=== PATIENT | female | born 1945 | race Caucasian/White ===

== ENCOUNTER → 2016-09-10 | Outpatient (CLI) | payer OTHER | LOC: EEVIPCON 13:40 → FIMAGING 13:40 | PROVIDERS: ATTEND Internal Medicine | DX: Z12.31 Encounter for screening mammogram for malignant neoplasm of breast (principal); Z80.3 Family history of malignant neoplasm of breast | CPT/HCPCS: G0202 ==

== ENCOUNTER → 2017-06-21 | Outpatient (CLI) | payer OTHER | LOC: FIMAGING 10:27 | PROVIDERS: ATTEND Internal Medicine | DX: Z98.1 Arthrodesis status (principal); M41.26 Other idiopathic scoliosis, lumbar region; M51.86 Other intervertebral disc disorders, lumbar region; M51.36 Other intervertebral disc degeneration, lumbar region; M48.02 Spinal stenosis, cervical region; M51.84 Other intervertebral disc disorders, thoracic region ==

== ENCOUNTER → 2017-11-03 | Outpatient (CLI) | payer OTHER | LOC: FIMAGING 15:19 | PROVIDERS: ATTEND Internal Medicine | DX: Z12.31 Encounter for screening mammogram for malignant neoplasm of breast (principal); Z80.3 Family history of malignant neoplasm of breast ==

== ENCOUNTER 2017-11-17 14:04 | Emergency (ER) | payer OTHER ==
[2017-11-17] MEDS ORDERED: LIDOCAINE 4%/MENTHOL 1% PATCH TD ONE (14:33)
--- NOTE | 2017-11-17 14:37 | EDPHY ---
H & P Stated Complaint: lower back pain Time Seen by Provider: 11/17/17 14:20 HPI/ROS: CHIEF COMPLAINT: Low back pain HISTORY OF PRESENT ILLNESS: 72-year-old female with prior L4-5 fusion presents with low back pain. 11 days ago she swung her grandson around while holding him. Onset of low back pain the next morning when she awoke. The back pain is moderate to severe and increases with any movement. The pain radiates to the buttock, but not down the leg. No numbness or weakness. Taking Naprosyn without much relief. Has an appointment with Dr. Kendrick Willis in 1 week for evaluation. REVIEW OF SYSTEMS: complete 10 point ROS reviewed and is negative except for the noted elements in the HPI - Personal History Current Tetanus/Diphtheria Vaccine: Yes Current Tetanus Diphtheria and Acellular Pertussis (TDAP): Yes - Medical/Surgical History Hx Asthma: No Hx Chronic Respiratory Disease: No Hx Diabetes: No Hx Cardiac Disease: No Hx Renal Disease: No Hx Cirrhosis: No Hx Alcoholism: No Hx HIV/AIDS: No Hx Splenectomy or Spleen Trauma: No Other PMH: back surgeries - Social History Smoking Status: Never smoked Additional Social History: - Physical Exam Exam: General Appearance: Alert, pleasant Eyes: Pupils equal and round, no conjunctival pallor ENT, Mouth: Mucous membranes moist Neck: Normal inspection Gastrointestinal: Abdomen is soft and nontender Back: Midline scar, no midline or paraspinous tenderness Neurological: A&O, motor 5/5 including dorsiflexion of the ankle and 1st toe, patellar DTRs 2+, normal gait Skin: Warm and dry Extremities: Normal inspection Psychiatric: Mood and affect normal Constitutional: Initial Vital Signs Temperature (C) 36.7 C 11/17/17 14:11 Heart Rate 75 11/17/17 14:11 Respiratory Rate 20 11/17/17 14:11 Blood Pressure 195/100 H 11/17/17 14:11 O2 Sat (%) 97 11/17/17 14:11 O2 Delivery Mode Room Air Allergies/Adverse Reactions: CATS Allergy (Intermediate, Uncoded 11/17/17 14:16) Itching STRAWBERRIES Allergy (Mild, Uncoded 11/17/17 14:16) Itching Home Medications: Medication Instructions Recorded Katherine 11/17/17 Oxycodone HCl 5 mg PO Q6 PRN #15 capsule 11/17/17 methylPREDNISolone [Medrol Dose 1 each PO AD #1 ea 11/17/17 Allen] Medical Decision Making ED Course/Re-evaluation: This patient presents with low back pain. Neurologic exam is normal and neuro imaging is not indicated. A lidocaine patch was placed. Prescriptions for Medrol Dosepak and oxycodone given. Has a follow-up appointment with neurosurgery next week. Warning signs discussed. Differential Diagnosis: Differential diagnosis for back pain includes muscular pain, herniated disc, epidural abscess, discitis, spine fracture, intra-abdominal causes and urinary tract infection. - Data Points Medications Given: Discontinued Medications Miscellaneous Medication (Icy Hot Lidocaine/Menthol 4%/1% Patch) 1 patch TD EDNOW ONE Stop: 11/17/17 14:34 Last Admin: 11/17/17 14:41 Dose: 1 patch Departure - Departure Disposition: Home, Routine, Self-Care Clinical Impression: Low back pain Qualifiers: Chronicity: acute Back pain laterality: left Sciatica presence: without sciatica Qualified Code(s): M54.5 - Low back pain Condition: Good Instructions: Low Back Strain (ED) Additional Instructions: Do not take ibuprofen or Naprosyn while you are on the Medrol Dosepak. Referrals: Stephany Tuttle MD [Primary Care Provider] - As per Instructions Georgie Willis MD [Medical Doctor] - As per Instructions Prescriptions: methylPREDNISolone [Medrol Dose Allen] 1 each PO AD #1 ea Oxycodone HCl 5 mg PO Q6 PRN #15 capsule PRN Reason: back pain
[2017-11-17 14:47] VITALS: BP 155/95
[2017-11-17] MEDS ORDERED: PATCH REMOVAL 1 EA PATCH TD SCH (21:00)
== END 2017-11-17 14:48 | disposition home or self-care (01) ==
DX: M54.5 Low back pain (principal); Z98.1 Arthrodesis status

== ENCOUNTER 2017-11-23 12:30 | Emergency (ER) | payer OTHER ==
--- NOTE | 2017-11-23 13:03 | EDPHY ---
H & P Time Seen by Provider: 11/23/17 13:03 HPI/ROS: CHIEF COMPLAINT: Right-sided burning abdominal pain HISTORY OF PRESENT ILLNESS: Patient was in our emergency department on November 17 for back pain, she does have previous back surgery and a long history of lower back pain. It is still there and she is on opioid pain medication is feeling somewhat constipated but did have bowel movement today. Or last 3 days she has had every time the opioids wear off a burning in her right lower abdomen. She feels like she is distended and maybe has mass down there. Not associated with vomiting or diarrhea or any urinary symptoms or fever or chills. Is not better worse with position, and in fact she wants to stand up and continually change position because standing in 1 place too long makes it worse. REVIEW OF SYSTEMS: Eye: no change in vision ENT: no sore throat Cardiac: no chest pain or syncope Pulmonary: no cough or SOB Abdomen: HPI Musculoskeletal: HPI Skin: no rash, specifically no vesicles or zoster Neuro: no headache Constitutional: no fever : no urinary symptoms A comprehensive 10 point review of systems is otherwise negative aside from elements mentioned in the history of present illness. PAST MEDICAL HISTORY: Includes prior back surgeries Social history: Nonsmoker General Appearance: Alert and conversant, cooperative. Eyes: No scleral icterus. ENT, Mouth: Normal mucous membranes. Respiratory: Normal respiratory effort, breath sounds equal, lungs are clear to auscultation. Cardiovascular: Regular rate and rhythm. Gastrointestinal: Mild right lower quadrant tenderness but no rebound or guarding. No hernia palpated. No pulsatile mass. Neurological: Alert, face symmetric, normal motor and sensory in extremities. Ambulatory, normal motor and sensory in both feet, no clonus, patellar reflexes 2+ and symmetric. Skin: Warm and dry, no rashes. No evidence of zoster. Musculoskeletal: No peripheral edema. Psychiatric: Not agitated. Emergency Department course/MDM: CT abdomen and pelvis discussed and consented. 1424: CT abdomen pelvis shows normal appendix, diverticulosis without diverticulitis, some constipation. No other reason for abdominal pain. 1440: Results discussed the patient, she has follow-up with her spine surgeon tomorrow. Differential also includes upper lumbar radiculopathy with opioid induced constipation, which I think is more likely at this time. Smoking Status: Never smoked Constitutional: Initial Vital Signs Temperature (C) 36.6 C 11/23/17 12:44 Heart Rate 82 11/23/17 12:44 Respiratory Rate 18 11/23/17 12:44 Blood Pressure 165/91 H 11/23/17 12:44 O2 Sat (%) 98 11/23/17 12:44 O2 Delivery Mode Room Air Allergies/Adverse Reactions: CATS Allergy (Intermediate, Uncoded 11/23/17 12:48) Itching STRAWBERRIES Allergy (Mild, Uncoded 11/23/17 12:48) Itching Home Medications: Medication Instructions Recorded Aleve 11/17/17 Oxycodone HCl 5 mg PO Q6 PRN #15 capsule 11/17/17 methylPREDNISolone [Medrol Dose 1 each PO AD #1 ea 11/17/17 Allen] Medical Decision Making - Diagnostics Imaging Results: Imaging Impressions Abdomen CT 11/23/17 13:36 Impression: 1. Normal appendix. 2. Sigmoid diverticulosis. No acute diverticulitis. 3. Constipation. 4. No localized intra-abdominal inflammatory process. 5. Well-seated posterior fusion construct at L4-L5. No evidence of loosening. Findings discussed with Emergency Department physician, Abraham Damon on 11/23/2017 , 14:32. - Data Points Laboratory Results: Laboratory Results 11/23/17 13:30 11/23/17 13:30 11/23/17 11/23/17 11/23/17 13:35 13:30 13:30 WBC 4.05 10^3/uL 10^3/uL (3.80-9.50) RBC 4.63 10^6/uL 10^6/uL (4.18-5.33) Hgb 15.5 g/dL g/dL (12.6-16.3) POC Hgb 16.0 gm/dL gm/dL (12.6-16.3) Hct 43.7 % % (38.0-47.0) POC Hct 47 % % (38-47) MCV 94.4 fL fL (81.5-99.8) MCH 33.5 pg pg (27.9-34.1) MCHC 35.5 g/dL g/dL (32.4-36.7) RDW 11.7 % % (11.5-15.2) Plt Count 219 10^3/uL 10^3/uL (150-400) MPV 8.9 fL fL (8.7-11.7) Neut % (Auto) 71.6 % % (39.3-74.2) Lymph % (Auto) 14.3 % L % (15.0-45.0) [place] % (Auto) 11.9 % % (4.5-13.0) Eos % (Auto) 1.5 % % (0.6-7.6) Baso % (Auto) 0.5 % % (0.3-1.7) Nucleat RBC Rel Count 0.0 % % (0.0-0.2) Absolute Neuts (auto) 2.90 10^3/uL 10^3/uL (1.70-6.50) Absolute Lymphs (auto) 0.58 10^3/uL L 10^3/uL (1.00-3.00) Absolute Monos (auto) 0.48 10^3/uL 10^3/uL (0.30-0.80) Absolute Eos (auto) 0.06 10^3/uL 10^3/uL (0.03-0.40) Absolute Basos (auto) 0.02 10^3/uL 10^3/uL (0.02-0.10) Absolute Nucleated RBC 0.00 10^3/uL 10^3/uL (0-0.01) Immature Gran % 0.2 % % (0.0-1.1) Immature Gran # 0.01 10^3/uL 10^3/uL (0.00-0.10) RBC/WBC/PLT Morphology TNP Platelet Estimate ADEQUATE (ADEQ) POC Sodium 139 mEq/L mEq/L (135-145) Sodium 138 mEq/L mEq/L (135-145) POC Potassium 3.9 mEq/L mEq/L (3.3-5.0) Potassium 4.2 mEq/L mEq/L (3.3-5.0) POC Chloride 100 mEq/L mEq/L (97-110) Chloride 100 mEq/L mEq/L (97-110) Carbon Dioxide 27 mEq/l mEq/l (22-31) Anion Gap 11 mEq/L mEq/L (8-16) POC BUN 14 mg/dL mg/dL (7-23) BUN 15 mg/dL mg/dL (7-23) Creatinine 0.6 mg/dL mg/dL (0.6-1.0) POC Creatinine 0.6 mg/dL mg/dL (0.6-1.0) Estimated GFR > 60 Glucose 101 mg/dL H mg/dL (70-100) POC Glucose 103 mg/dL H mg/dL (70-100) Calcium 10.1 mg/dL mg/dL (8.5-10.4) Urine Color Urine Appearance Urine pH Ur Specific [place] Urine Protein Urine Ketones Urine Blood Urine Nitrate Urine Bilirubin Urine Urobilinogen Ur Leukocyte Esterase Urine Glucose 11/23/17 12:40 WBC RBC Hgb POC Hgb Hct POC Hct MCV MCH MCHC RDW Plt Count MPV Neut % (Auto) Lymph % (Auto) [place] % (Auto) Eos % (Auto) Baso % (Auto) Nucleat RBC Rel Count Absolute Neuts (auto) Absolute Lymphs (auto) Absolute Monos (auto) Absolute Eos (auto) Absolute Basos (auto) Absolute Nucleated RBC Immature Gran % Immature Gran # RBC/WBC/PLT Morphology Platelet Estimate POC Sodium Sodium POC Potassium Potassium POC Chloride Chloride Carbon Dioxide Anion Gap POC BUN BUN Creatinine POC Creatinine Estimated GFR Glucose POC Glucose Calcium Urine Color PALE YELLOW Urine Appearance CLEAR Urine pH 7.0 (5.0-7.5) Ur Specific [place] 1.005 (1.002-1.030) Urine Protein NEGATIVE (NEGATIVE) Urine Ketones NEGATIVE (NEGATIVE) Urine Blood NEGATIVE (NEGATIVE) Urine Nitrate NEGATIVE (NEGATIVE) Urine Bilirubin NEGATIVE (NEGATIVE) Urine Urobilinogen NEGATIVE EU EU (0.2-1.0) Ur Leukocyte Esterase NEGATIVE (NEGATIVE) Urine Glucose NEGATIVE (NEGATIVE) Point of Care Test Results: Chemistry 11/23/17 13:35 POC Sodium 139 mEq/L mEq/L (135-145) POC Potassium 3.9 mEq/L mEq/L (3.3-5.0) POC Chloride 100 mEq/L mEq/L (97-110) POC BUN 14 mg/dL mg/dL (7-23) POC Creatinine 0.6 mg/dL mg/dL (0.6-1.0) POC Glucose 103 mg/dL H mg/dL (70-100) ISTAT H&H 11/23/17 13:35 POC Hgb 16.0 gm/dL gm/dL (12.6-16.3) POC Hct 47 % % (38-47) Departure - Departure Disposition: Home, Routine, Self-Care Clinical Impression: Lumbar radiculopathy, acute Abdominal pain Qualifiers: Abdominal location: right lower quadrant Qualified Code(s): R10.31 - Right lower quadrant pain Condition: Good Instructions: Acute Abdominal Pain (ED), Lumbar Radiculopathy (ED) Referrals: Stephany Tuttle MD [Primary Care Provider] - As per Instructions Georgie Willis MD [Medical Doctor] - As per Instructions (Please follow-up in the office this week.)
[2017-11-23 13:44] LABS: PLATELET COUNT 219 10^3/uL (150-400)
[2017-11-23] MEDS ORDERED: IOPAMIDOL (ISOVUE-300) 100 ML BTL ONE (13:52)
[2017-11-23 14:25] VITALS: BP 177/97
== END 2017-11-23 15:09 | disposition home or self-care (01) ==
DX: R10.31 Right lower quadrant pain (principal); M54.16 Radiculopathy, lumbar region
CPT/HCPCS: 74177; 99285; Q9967; 82435-PO; 82565-PO; 82947-PO; 84132-PO; 84295-PO; 84520-PO; 85014-PO

== ENCOUNTER → 2017-11-29 | Outpatient (CLI) | payer OTHER | LOC: FIMAGING 14:38 | PROVIDERS: ATTEND Neurological Surgery | DX: M79.89 Other specified soft tissue disorders (principal); M48.05 Spinal stenosis, thoracolumbar region; M51.35 Other intervertebral disc degeneration, thoracolumbar region; D18.09 Hemangioma of other sites ==

== ENCOUNTER 2017-12-14 06:51 | Inpatient (IN) | payer OTHER ==
[2017-12-14] MEDS ORDERED: GABAPENTIN 300 MG CAP PO ONE (07:20)
[2017-12-14] MEDS ORDERED: ACETAMINOPHEN 500 MG TAB PO ONE (07:20)
[2017-12-14] MEDS ORDERED: ceFAZolin 2 GM/DEXTROSE 100 ML IV ONE (07:20)
[2017-12-14] MEDS ORDERED: LR 1,000 ML IV ONE (07:21)
[2017-12-14] MEDS ORDERED: LIDOCAINE 1% 2 ML INJ ID PRN (07:21)
--- NOTE | 2017-12-14 07:53 | PDHPUP ---
History & Physical Update H&P update statement: This history and physical update is based on an assessment of the patient which was completed after admission or registration (within 24 hours), but prior to the surgery/procedure. H&P update: H&P reviewed & patient examined, no change in patient's condition since H&P completed
[2017-12-14] MEDS ORDERED: CHLORHEXIDINE GLUC HIBICLENS 118 ML BTL TP ONE (08:33)
[2017-12-14] MEDS ORDERED: DEPO METHYLPREDNISOLONE 40 MG/ML SDV ONE (08:34)
[2017-12-14] MEDS ORDERED: THROMBIN (BOVINE) 5,000 UNIT VIAL TP ONE (08:34)
[2017-12-14] MEDS ORDERED: BUPIVACAINE 0.25% 30 ML SDV ONE (08:34)
[2017-12-14] MEDS ORDERED: EPINEPHrine 1 MG/ML INJ ONE (08:34)
[2017-12-14] MEDS ORDERED: BACITRACIN 50,000 UNITS/10 ML SYR IRR ONE (08:35)
[2017-12-14] MEDS ORDERED: fentaNYL 250 MCG/5 ML INJ ONE (09:05)
[2017-12-14] MEDS ORDERED: MIDAZOLAM 2 MG/2 ML VIAL ONE (09:05)
[2017-12-14] MEDS ORDERED: PROPOFOL/EMULSION 500 MG/50 ML BOTTLE IV ONE ×2 (09:06→10:18)
[2017-12-14] MEDS ORDERED: ROCURONIUM 50 MG/5 ML VIAL ONE (09:07)
[2017-12-14] MEDS ORDERED: DEXAMETHASONE 4 MG/ML VIAL ONE ×2 (09:07)
--- NOTE | 2017-12-14 09:07 | PDANEPAE ---
ANE Past Medical History - Cardiovascular History Hx Hypertension: No Hx Arrhythmias: No Hx Chest Pain: No Hx Coronary Artery / Peripheral Vascular Disease: No Hx CHF / Valvular Disease: No Hx Palpitations: No - Pulmonary History Hx COPD: No Hx Asthma/Reactive Airway Disease: No Hx Recent Upper Respiratory Infection: No Hx Oxygen in Use at Home: No Hx Sleep Apnea: No Sleep Apnea Screening Result - Last Documented: Negative - Neurologic History Hx Cerebrovascular Accident: No Hx Seizures: No Hx Dementia: No Neurologic History Comment: hx of five previous back surgeries. 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 spinal decompressions and fusions x5. hysterectomy. big toe joint replacement. varicose vein stripping. dental procedures ANE Review of Systems Review of Systems: - Exercise capacity METS (RN): 4 METS ANE Patient History - Allergies Allergies/Adverse Reactions: CATS Allergy (Uncoded 12/07/17 12:32) Itching STRAWBERRIES Allergy (Uncoded 12/07/17 12:32) Itching - Home Medications Home Medications: Ascorbic Acid [Vitamin C 500 mg (*)] 500 mg PO SUTUTHSA 12/07/17 [Last Taken ] Calcium Carbonate [Oyster Shell Calcium 500 mg (*)] 500 mg PO SUTUTHSA 12/07/17 [Last Taken 12/10/17] Carboxymethylcellulose 1% [Refresh Celluvisc (*)] 1 drop EACHEYE DAILY PRN 12/07 [Last Taken 12/13/17] Cholecalciferol Vit D3 [Vitamin D3 (*)] 1,000 units PO MWF 12/07/17 [Last Taken 12/10/17] Cholecalciferol Vit D3 [Vitamin D3 2000 units tab (OTC)] 2,000 units PO SUTUTHSA 12/07/17 [Last Taken 12/10/17] Docusate Sodium [Colace 100 MG (*)] 200 mg PO TID 12/07/17 [Last Taken 12/14/17 05:45] Gabapentin [Neurontin 100 MG (*)] 200 mg PO DAILY@1830 12/07/17 [Last Taken 23:00] Herbals/Supplements -Info Only 1 ea PO DAILY 12/07/17 [Last Taken 12/04/17] Melatonin [Melatonin 3 MG (*)] 3 mg PO HS 12/07/17 [Last Taken 12/10/17] Multivitamins [Multivitamin (*)] 1 each PO MWF 12/07/17 [Last Taken 12/04/17] Sennosides [Senna Lax] 1 - 2 each PO HS 12/07/17 [Last Taken 12/13/17 09:00] Vitamin B Complex [Vitamin B Complex (OTC)] 1 each PO SUTUTHSA 12/07/17 [Last Taken 12/04/17] oxyCODONE IR [Oxycodone Ir (*)] 5 mg PO Q4HRS 12/07/17 [Last Taken 12/14/17 05: 45] ACETAMINOPHEN 12/14/17 [Last Taken 12/14/17 05:45] - NPO status NPO Since - Liquids (Date): 12/14/17 NPO Since - Liquids (Time): 08:00 NPO Since - Solids (Date): 12/13/17 NPO Since - Solids (Time): 00:59 - Smoking Hx Smoking Status: Never smoked - Family Anes Hx Family Hx Anesthesia Complications: none ANE Labs/Vital Signs - Vital Signs Blood Pressure: 143/86 Heart Rate: 69 Respiratory Rate: 14 O2 Sat (%): 95 Height: 149.86 cm Weight: 47.627 kg ANE Physical Exam - Airway Neck exam: FROM, decreased ROM Mallampati Score: Class 2 - Pulmonary Pulmonary: no respiratory distress - Cardiovascular Cardiovascular: regular rate and rhythym - ASA Status ASA Status: II ANE Anesthesia Plan Anesthesia Plan: general endotracheal anesthesia
[2017-12-14] MEDS ORDERED: ONDANSETRON DISINTEGRATING 4 MG TAB PO PRN (10:09)
[2017-12-14] MEDS ORDERED: BISACODYL 10 MG SUPP PR PRN (10:09)
[2017-12-14] MEDS ORDERED: LACTULOSE 20 GM/30 ML UDCUP PO PRN (10:09)
[2017-12-14] MEDS ORDERED: MAGNESIUM HYDROXIDE 30 ML UDCUP PO PRN (10:09)
[2017-12-14] MEDS ORDERED: ONDANSETRON 4 MG/2 ML VIAL IVP PRN ×2 (10:09→11:40)
[2017-12-14] MEDS ORDERED: POLYETHYLENE GLYCOL 3350 17 GM PKT PO PRN (10:09)
[2017-12-14] MEDS ORDERED: diphenhydrAMINE 25 MG CAP PO PRN (10:09)
[2017-12-14] MEDS ORDERED: CARBOXYMETHYLCELLULOSE 1% 0.4 ML DROPERETTE EACHEYE PRN (10:12)
[2017-12-14] MEDS ORDERED: NS 1,000 ML IV SCH (10:15)
[2017-12-14] MEDS ORDERED: GLYCOPYRROLATE 0.2 MG/1 ML VIAL ONE ×2 (11:16)
[2017-12-14] MEDS ORDERED: NEOSTIGMINE METHYLSULFATE 5 MG/5 ML SYR ONE (11:16)
[2017-12-14] MEDS ORDERED: ALBUTEROL 3 ML DEYVIAL IH PRN (11:40)
[2017-12-14] MEDS ORDERED: HYDROCODONE/APAP 5/325 TAB PO PRN (11:40)
[2017-12-14] MEDS ORDERED: oxyCODONE IR 5 MG TAB PO PRN (11:40)
[2017-12-14] MEDS ORDERED: NALOXONE HCL 0.4 MG/ML INJ IVP PRN (11:40)
--- NOTE | 2017-12-14 11:41 | POSTOPPROG ---
Post Op Note Date of Operation: 12/14/17 Surgeon: Georgie Willis Reservations Specialist: Deja Streeter NP Anesthesiologist: Dr Baltazar Anesthesia: GET(General Endotracheal) Pre-op Diagnosis: T12 disc herniation/stenosis Procedure: T12 laminectomy for disc herniation Inf/Abcess present in the surg proc area at time of surgery?: No Depth: Deep Incisional (Fascial) EBL: Minimal Total fluids administered: see anesthesia Complications: none Date of Surgery: 12/14/17 Post Op Day: 0 Assessment/Plan: 72 yr old F s/p T12 laminectomy for disc herniation Plan: -Admit for Obs Med Surg. Patient may go home later today if doing well. -PT/OT -Pain management -Please call neurosurgery with questions/concerns Subjective: Waking up in PACU Objective: Waking up in PACU MARTELL x4 5/5 BUE, BLE Sensation intact to light touch BLE Dressing CDI Appropriate Neuro Check Frequency Ordered: Yes
--- NOTE | 2017-12-14 11:42 | POSTANESTH ---
Post Anesthetic Evaluation Cardiovascular Status: Similar to Pre-Op Cond Respiratory Status: Similar to Pre-op Cond. Level of Consciousness/Mental Status: Mildly Sleepy, Arousable Pain Control: Adequate, Prn Tx Ordered Nausea/Vomiting Control: Adequate, Prn Tx Ordered Complications Possibly Related to Anesthesia: None Noted
[2017-12-14] MEDS ORDERED: fentaNYL 100 MCG/2 ML INJ ONE ×2 (11:50→12:08)
[2017-12-14] MEDS: fentaNYL 100 MCG/2 ML INJ IVP PRN ×2 (11:51→11:59)
[2017-12-14] MEDS ORDERED: DIAZEPAM 5 MG/ML 1 ML SYR ONE (12:08)
[2017-12-14] MEDS ORDERED: DIAZEPAM 5 MG/ML 1 ML SYR IVP ONE (12:45)
[2017-12-14] MEDS: ACETAMINOPHEN 500 MG TAB PO SCH ×2 (14:02→21:08)
[2017-12-14] MEDS: oxyCODONE IR 5 MG TAB PO PRN ×3 (14:25→22:56)
--- NOTE | 2017-12-14 16:26 | GOP ---
DATE OF OPERATION: 12/14/2017 SURGEON: Anjum Willis MD NEUROSURGEON: Anjum Willis MD PULMONARY DISEASE SPECIALIST: Deja Streeter, nurse practitioner PREOPERATIVE DIAGNOSIS: Right T12 disk herniation. POSTOPERATIVE DIAGNOSIS: Right T12 disk herniation. PROCEDURE PERFORMED: Right T12 transpedicular microdiskectomy of the thoracic spine, microscope. FINDINGS: ESTIMATED BLOOD LOSS: 25 cc. INDICATIONS: The patient a 72-year-old who has a history of significant cervical spine problems that were surgically corrected with multilevel fusion. She also underwent a previous fusion at the [facility] at L4-5. She had demonstrated autofusion at L2-3. 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 We felt this was an exacerbation of her known disease at L3-4. Pain was quite acute a nd the patient was struggling with this pain. We did do a new MRI and surprisingly it showed a very large disk herniation behind the vertebral body of T12 on the right side of the spinal canal going in to the neural foramen for the exiting T12 nerve root. It may have arisen from the T12-L1 disk, but h ad traveled rostrally up to the level of the T12 pedicle. I suggested surgery for this given the acu ity of her pain and she did want to proceed. The risk of spinal cord injury, spinal fluid leak, recu rrent disk herniation was discussed. We had briefly discussed the possibility that it was a tumor, b ut I did not think it was a tumor. She wanted to proceed despite the known risks procedure. DESCRIPTION OF PROCEDURE: The patient was taken to the operating room, placed in supine position. G eneral anesthesia was begun. She was flipped prone onto the Tristan frame. Care was taken to pad all points of contact. Her back was sterilely prepped and draped in usual fashion. A localizing x-ray was taken. We made about a 2.5 cm incision above the T12-L1 interspace. The subcutaneous tissue was dissected u sing Bovie cautery down to the fascia and subperiosteal dissection was made down the T12 lamina. We localized a T12-L1 disk space in the T11-T12 disk space. We placed a self-retaining retractor and we drilled a right T12 hemilaminectomy. We then drilled out the medial portion of the pedicle of T12 a nd worked our way down to the disk fragment. We identified the lateral thecal sac and as we were ope akhil up the neural foramen for the T12 nerve root underneath the T12 pedicle, there was a lot of nerv e irritability. The nerve sheath was totally intact and we did not want to move the nerve, so we got a humberto drill bit and did perform a transpedicular decompression where we worked our way down the medial pedicle border and then fractured this bone away from the spinal canal into the pedicle, itsel f, and this opened up a nice corridor around the T12 nerve root. At this point, we were able to deliver a medium size fragment out from underneath the nerve with a ba ll-tip probe, and after doing this, it now created a lot of laxity in this area and we delivered luis ral small free fragments of disk out with a ball-tip probe. We did not retract on the dura whatsoeve r. We did retract slightly in the T12 root, itself, and we delivered a number of very large fragment s and we pulled out something that probably measured close to 1.5 in diameter and 1.5 cm in length. It was quite large and almost the size of the surgeon's end of his thumb that was located all within the spinal canal. There was a large ventral epidural vein present. We tried to preserve this and th ere was really not that much bleeding during the surgery. We also were able to tease fragments out of the T12-L1 foramen and a number of fragments were deliver ed by sweeping up from the T12-L1 disk upward toward the shoulder. The T12 root. We got a large vinh unt of disk material out and it came out relatively easy. We swept both down and up towards the T12 root. We carefully swept in the neural foramen as well and got several fragments out from this locat ion and there was tremendous laxity in the area once all these fragments were removed. We then irrigated it with antibiotic saline solution and then began to close. We did notice that the nerve irritability of the T12 root decreased dramatically as the disk was removed. We closed the in cision in multiple layers using Vicryl sutures. Steri-Strips were applied the skin. The patient was reversed from anesthesia, extubated, and transferred to recovery room in stable condition. There we re no complications. COMPLICATIONS: None. /[id number]/MODL
[2017-12-14] MEDS: ceFAZolin 2 GM/DEXTROSE 100 ML IV SCH (17:18)
[2017-12-14] MEDS ORDERED: GABAPENTIN 100 MG CAP PO SCH (18:30)
[2017-12-14] MEDS: MELATONIN 3 MG TAB PO SCH (21:09)
[2017-12-14] MEDS: FAMOTIDINE 20 MG TAB PO SCH (21:09)
[2017-12-14] MEDS: SENNOSIDES/DOCUSATE SODIUM TAB PO SCH (21:09)
[2017-12-15] MEDS: ceFAZolin 2 GM/DEXTROSE 100 ML IV SCH (01:42)
[2017-12-15] MEDS: METHOCARBAMOL 750 MG TAB PO PRN ×4 (02:18→20:47)
[2017-12-15] MEDS: ACETAMINOPHEN 500 MG TAB PO SCH ×3 (05:37→22:52)
[2017-12-15] MEDS: oxyCODONE IR 5 MG TAB PO PRN ×5 (05:41→19:14)
--- NOTE | 2017-12-15 08:26 | NEUSURGPN ---
Date of Surgery: 12/14/17 Post Op Day: 1 Assessment/Plan: Assessment: 72 yr old F s/p T12 laminectomy for disc herniation POD #1 Plan: -s/p T12 laminectomy: Pt states that she has some lower back pain but the LE pain is gone -PT/OT ordered -no brace -if clears therapies we will dc to home today -Obs Med Surg. Patient may go home later today if doing well -call with any questions or concerns -continue with current pain management -pts has rxs for pain medications/muscle relaxant Subjective: Awake and alert. NAD. Eating/drinking and voiding. No f/c/n/v/d. No oh/neck/ chest/abd or gu complaints Objective: Awake and alert. NAD Waking up in room-walking in palmer/to the BR PERRLA/EOMI no droop CN 2-12 grossly intact MARTELL x4 5/5 BUE/BLE Sensation intact to light touch BLE Dressing CDI Neuro Check Frequency: per routine Urinary Catheter in Place: No - Physician Discussed Patient with : Lazaro Patient Seen by : aLzaro Neurosurgery Physical Exam - Vitals, I&O, Labs I and O 12/14/17 12/15/17 12/16/17 05:59 05:59 05:59 Intake Total 2109 Output Total 2024 400 Balance 85 -400 Weight 47.627 kg Intake: Oral (ml) 10 IV Intake (ml) 1800 IV Infused (ml) 300 Ns 1,000 ml @ 75 mls/hr 200 IV CONT [place] Rx#: [id number] ceFAZolin 2 GM/DEXTROSE 100 100 ml @ 200 mls/hr IV Q8H [facility] Rx#:[id number] Output: Urine (ml) 2000 400 Bedside Commode 400 Catheter 1000 Toilet 600 400 Estimated Blood Loss (ml) 25 Other: Number of Voids Toilet 1 1 Bladder Scan Volume (ml) Bedside Commode 1,000 Post Void Residual Scan Volume (ml) Bedside Commode 861 Vital Signs Temp Pulse Resp BP Pulse Ox 36.7 C 55 L 16 138/65 H 94 12/15/17 04:00 12/15/17 04:00 12/15/17 04:00 12/15/17 04:00 12/15/17 04:00 ICD10 Worksheet Patient Problems: Problems Problem Status Onset Lumbar radicular pain Acute Lumbar stenosis Acute - ICD10 Problem Qualifiers (1) Lumbar stenosis (2) Lumbar radicular pain
[2017-12-15] MEDS: SENNOSIDES/DOCUSATE SODIUM TAB PO SCH ×2 (09:29→20:47)
[2017-12-15] MEDS: FAMOTIDINE 20 MG TAB PO SCH ×2 (09:30→20:47)
--- NOTE | 2017-12-15 12:07 | ASMTLACE ---
LACE Length of stay for Answers: 2 days current admission Acuity / Level of Answers: No Care: Did the patient have an inpatient admission? Comorbidities - select Answers: Opioid dependence all that apply / Chronic pain # of Emergency department Answers: 1-2 visits in the last 6 months Score: 7 Date Signed: 12/15/2017 12:06 PM Electronically Signed By:TRAN New
--- NOTE | 2017-12-15 12:08 | ASMTCMCOM ---
CM Note CM Note Notes: Pt had planned surgery for thoracic stenosis. Pt resides with spouse. PT rec home. Pt medically stable for d/c, no CM d/c needs identified. Date Signed: 12/15/2017 12:07 PM Electronically Signed By:TRAN New
[2017-12-15] MEDS ORDERED: GABAPENTIN 300 MG CAP PO ONE (12:30)
[2017-12-15] MEDS: GABAPENTIN 100 MG CAP PO SCH ×2 (15:46→22:51)
[2017-12-15] MEDS ORDERED: KETOROLAC 15 MG/1 ML SDV IVP ONE (16:30)
[2017-12-15] MEDS ORDERED: IBUPROFEN 200 MG TAB PO PRN (16:36)
[2017-12-15] MEDS: MELATONIN 3 MG TAB PO SCH (20:47)
[2017-12-16] MEDS: oxyCODONE IR 5 MG TAB PO PRN ×6 (00:08→23:01)
[2017-12-16] MEDS: METHOCARBAMOL 750 MG TAB PO PRN ×4 (05:17→23:05)
[2017-12-16] MEDS: ACETAMINOPHEN 500 MG TAB PO SCH ×3 (06:50→20:58)
--- NOTE | 2017-12-16 07:22 | NEUSURGPN ---
Date of Surgery: 12/14/17 Post Op Day: 2 Assessment/Plan: Assessment: 72 yr old F s/p T12 laminectomy for disc herniation POD #2 Plan: -s/p T12 laminectomy: Pt states that she has lower back pain that is worse and yesterday developed BLE pain in the anterior and lateral thighs. She was started on gabapentin and NSAIDs. She continues to complain of pain that does not go below knees. Pt had some residual urine retention as well -pending MRI of the T and L spine with and wo contrast -continue with Campbell now -no saddle numbness or pain, 5/5 BLE strength -PT/OT ordered -no brace -IP Med Surg. DC On hold due to new issues of pain and residual urine retention -call with any questions or concerns -continue with current pain management -pts has rxs for pain medications/muscle relaxant Subjective: Awake and alert. NAD. Eating/drinking. Passing gas. No oh/neck/chest/abd or gu complaints. No f/c/n/v/d Objective: Awake and alert. NAD Pain in anterior and lateral thighs PERRLA/EOMI no droop CN 2-12 grossly intact MARTELL x4 5/5 BUE/BLE Sensation intact to light touch BLE Dressing CDI Neuro Check Frequency: per routine Urinary Catheter in Place: No - Physician Discussed Patient with .: Lazaro Patient Seen by .: Lazaro Neurosurgery Physical Exam - Vitals, I&O, Labs I and O 12/15/17 12/16/17 12/17/17 05:59 05:59 05:59 Intake Total 2109 1400 450 Output Total 2024 3949 1250 Balance 85 -2550 -800 Weight 47.627 kg Intake: Oral (ml) 10 1400 450 IV Intake (ml) 1800 IV Infused (ml) 300 Ns 1,000 ml @ 75 mls/hr 200 IV CONT RIVER Rx#: [id number] ceFAZolin 2 GM/DEXTROSE 100 100 ml @ 200 mls/hr IV Q8H RIVER Rx#:[id number] Output: Urine (ml) 1999 3950 1250 Bedside Commode 400 Catheter 1000 1100 1250 Toilet 600 2850 Estimated Blood Loss (ml) 25 Other: Number of Voids Catheter 1 Toilet 1 1 Bladder Scan Volume (ml) Bedside Commode 1,000 Toilet 850 Post Void Residual Scan Volume (ml) Bedside Commode 861 Vital Signs Temp Pulse Resp BP Pulse Ox 36.6 C 60 16 134/72 H 95 12/16/17 00:00 12/16/17 00:00 12/16/17 00:00 12/16/17 00:00 12/16/17 00:00 ICD10 Worksheet Patient Problems: Problems Problem Status Onset Lumbar radicular pain Acute Lumbar stenosis Acute - ICD10 Problem Qualifiers (1) Lumbar stenosis (2) Lumbar radicular pain
[2017-12-16] MEDS: SENNOSIDES/DOCUSATE SODIUM TAB PO SCH ×2 (09:18→20:57)
[2017-12-16] MEDS: GABAPENTIN 100 MG CAP PO SCH ×3 (09:19→20:59)
[2017-12-16] MEDS: FAMOTIDINE 20 MG TAB PO SCH ×2 (09:19→21:00)
--- NOTE | 2017-12-16 10:41 | PDMN ---
Medical Necessity Medical necessity: Changed to IP as of 12/16/2017 per and PAULETTE SG-NS; los > 2 mn for ongoing management of worsening lower back pain s/p T12 laminectomy for disc herniation post op day 2 (CPT 16938); requiring further monitoring/workup and pain management
[2017-12-16] MEDS ORDERED: GADOBUTROL 10 ML VIAL IVP ONE (11:35)
[2017-12-16] MEDS ORDERED: methylPREDNISolone SOD SUCC 125 MG in D5W 50 ML IV ONE (13:47)
[2017-12-16] MEDS ORDERED: methylPREDNISolone 4 MG TAB PO SCH ×2 (14:00→19:00)
[2017-12-16] MEDS ORDERED: methylPREDNISolone SOD SUCC 125 MG/2 ML VIAL IVP ONE (14:00)
[2017-12-16] MEDS: methylPREDNISolone 4 MG TAB PO SCH ×2 (18:25→21:00)
[2017-12-16] MEDS: MELATONIN 3 MG TAB PO SCH (20:59)
[2017-12-17] MEDS: ACETAMINOPHEN 500 MG TAB PO SCH ×3 (05:44→22:22)
[2017-12-17] MEDS: METHOCARBAMOL 750 MG TAB PO PRN ×4 (05:45→22:24)
[2017-12-17] MEDS: oxyCODONE IR 5 MG TAB PO PRN ×5 (05:45→22:24)
[2017-12-17] MEDS ORDERED: methylPREDNISolone 4 MG TAB PO SCH ×3 (07:30→21:00)
--- NOTE | 2017-12-17 07:58 | NEUSURGPN ---
Date of Surgery: 12/14/17 Post Op Day: 3 Assessment/Plan: Assessment: 72 yr old F s/p T12 laminectomy for disc herniation POD #3 Plan: -s/p T12 laminectomy: Pt states that she has lower back pain that was worse and 2 days ago developed BLE pain in the anterior and lateral thighs. She was started on gabapentin and NSAIDs initially. Now she is on PO steroids and a higher dose of gabapentin. We recommended that she get new MRIs and this was completed. We believe that the pain is from the L3/4 level. She is better this am. She walked to the BR last night. She states that the pain is better and she is feeling stronger. She can move her legs more comfortably. She continues to complain of pain that is better that does not go below knees bilaterally. Pt had some residual urine retention as well. We will pull the macias today and see how she does -no saddle numbness or pain, 5/5 BLE strength -PT/OT ordered -no brace needed -IP Med Surg. DC On hold due to new issues of pain -call with any questions or concerns -continue with current pain management strategy -pts has rxs for pain medications/muscle relaxant -pt seen by Dr Willis as well Subjective: Awake and alert. NAD. Eating/drinking. No oh/neck/chest/abd or gu complaints. No f/c/n/v/d. Objective: Awake and alert. NAD Pain in anterior and lateral thighs that is better PERRLA/EOMI no droop CN 2-12 grossly intact MARTELL x4 5/5 BUE/BLE Sensation intact to light touch BLE Dressing CDI Neuro Check Frequency: per routine Urinary Catheter in Place: Yes Urinary Catheter Indication: Other (Use Comment) (to be removed today) - Physician Discussed Patient with : Lazaro Patient Seen by : Lazaro Neurosurgery Physical Exam - Vitals, I&O, Labs I and O 12/16/17 12/17/17 12/18/17 05:59 05:59 05:59 Intake Total 1400 1425 Output Total 3950 5050 Balance -2550 -3625 Intake: Oral (ml) 1400 1425 Output: Urine (ml) 3950 5050 Catheter 1100 5050 Toilet 2850 Other: Number of Voids Catheter 1 Toilet 1 Number of Stools Toilet 1 Bladder Scan Volume (ml) Toilet 850 Vital Signs Temp Pulse Resp BP Pulse Ox 36.3 C 73 18 143/74 H 91 L 12/16/17 23:14 12/16/17 23:14 12/16/17 23:14 12/16/17 23:14 12/16/17 23:14 ICD10 Worksheet Patient Problems: Problems Problem Status Onset Lumbar radicular pain Acute Lumbar stenosis Acute - ICD10 Problem Qualifiers (1) Lumbar stenosis (2) Lumbar radicular pain
[2017-12-17] MEDS: GABAPENTIN 100 MG CAP PO SCH ×3 (09:15→22:24)
[2017-12-17] MEDS: SENNOSIDES/DOCUSATE SODIUM TAB PO SCH ×2 (09:16→22:22)
[2017-12-17] MEDS: methylPREDNISolone 4 MG TAB PO SCH ×5 (09:16→19:39)
[2017-12-17] MEDS: FAMOTIDINE 20 MG TAB PO SCH ×2 (09:17→22:21)
[2017-12-17] MEDS: ENOXAPARIN 40 MG/0.4 ML SYR SC SCH (09:22)
[2017-12-17] MEDS: MELATONIN 3 MG TAB PO SCH (21:25)
[2017-12-18] MEDS: oxyCODONE IR 5 MG TAB PO PRN ×6 (05:35→23:06)
[2017-12-18] MEDS: METHOCARBAMOL 750 MG TAB PO PRN ×2 (05:35→14:28)
[2017-12-18] MEDS: ACETAMINOPHEN 500 MG TAB PO SCH (05:44)
[2017-12-18] MEDS ORDERED: methylPREDNISolone 4 MG TAB PO SCH (07:30)
[2017-12-18] MEDS: SENNOSIDES/DOCUSATE SODIUM TAB PO SCH ×2 (08:17→20:50)
[2017-12-18] MEDS: FAMOTIDINE 20 MG TAB PO SCH ×2 (08:18→20:50)
[2017-12-18] MEDS: ENOXAPARIN 40 MG/0.4 ML SYR SC SCH (08:18)
[2017-12-18] MEDS: methylPREDNISolone 4 MG TAB PO SCH ×4 (08:18→20:49)
[2017-12-18] MEDS: GABAPENTIN 100 MG CAP PO SCH ×3 (08:18→20:49)
--- NOTE | 2017-12-18 08:26 | SOAPPROG ---
ELANIE Progress Note Assessment/Plan: Post Op Day: 4 Assessment/Plan: Assessment: 72 yr old F s/p T12 laminectomy for disc herniation POD #4 Pt developed lower back pain that was worse and 3 days ago developed BLE pain in the anterior and lateral thighs. She was started on gabapentin and NSAIDs initially. Now she is on PO steroids and a higher dose of gabapentin. We recommended that she get new MRIs and this was completed. We believe that the pain is from the L3/4 level. She is better overall. She can move her legs more comfortably. She continues to complain of pain that is better that does not go below knees bilaterally. Plan: - Decrease Tylenol to 500mg TID per pt request, this is ok with Dr. Willis. -PT/OT ordered -no brace needed -IP Med Surg. DC On hold due to new issues of pain -call with any questions or concerns -continue with current pain management strategy -pts has rxs for pain medications/muscle relaxant Subjective: Awake and alert. walking to BR with walker. Objective: Awake and alert. NAD Pain in anterior and lateral thighs that is better PERRLA/EOMI no droop CN 2-12 grossly intact MARTELL x4 5/5 BUE/BLE Sensation intact to light touch BLE Dressing CDI Neuro Check Frequency: per routine Urinary Catheter in Place: No Plan: 12/18/17 08:22 Objective: Vital Signs Temp Pulse Resp BP Pulse Ox 36.7 C 61 16 172/82 H 94 12/18/17 07:47 12/18/17 07:47 12/18/17 07:47 12/18/17 07:47 12/18/17 07:47 12/17/17 12/18/17 12/19/17 05:59 05:59 05:59 Intake Total 1425 525 Output Total 9256 2380 Balance -6762 -0499 ICD10 Worksheet Patient Problems: Problems Problem Status Onset Lumbar radicular pain Acute Lumbar stenosis Acute
[2017-12-18] MEDS: ACETAMINOPHEN 500 MG TAB PO PRN ×2 (14:28→23:05)
--- NOTE | 2017-12-18 15:57 | ASMTCMCOM ---
CM Note CM Note Notes: Pt challenged by pain and spasms, PT rec home/HHC/SNF today. Pt considering another fusion, which could be Thursday. CM to follow. Date Signed: 12/18/2017 03:56 PM Electronically Signed By:TRAN New
[2017-12-18] MEDS: MELATONIN 3 MG TAB PO SCH (23:02)
[2017-12-19] MEDS: METHOCARBAMOL 750 MG TAB PO PRN ×4 (02:16→18:26)
[2017-12-19] MEDS: oxyCODONE IR 5 MG TAB PO PRN ×6 (03:13→22:26)
[2017-12-19] MEDS ORDERED: methylPREDNISolone 4 MG TAB PO SCH (07:30)
[2017-12-19] MEDS: SENNOSIDES/DOCUSATE SODIUM TAB PO SCH ×2 (08:04→22:21)
[2017-12-19] MEDS: GABAPENTIN 100 MG CAP PO SCH ×3 (08:04→22:21)
[2017-12-19] MEDS: ACETAMINOPHEN 500 MG TAB PO PRN ×2 (08:05→18:26)
[2017-12-19] MEDS: FAMOTIDINE 20 MG TAB PO SCH ×2 (08:05→20:41)
[2017-12-19] MEDS: methylPREDNISolone 4 MG TAB PO SCH ×3 (08:06→20:41)
[2017-12-19] MEDS: ENOXAPARIN 40 MG/0.4 ML SYR SC SCH (08:13)
--- NOTE | 2017-12-19 11:17 | NEUSURGPN ---
Date of Surgery: 12/14/17 Post Op Day: 5 Assessment/Plan: Assessment: 72 yr old F s/p T12 laminectomy for disc herniation POD #5 Pt developed lower back pain that was worse and 4 days ago developed BLE pain in the anterior and lateral thighs. She was started on gabapentin and NSAIDs initially. Now she is on PO steroids and a higher dose of gabapentin. We recommended that she get new MRIs and this was completed. We believe that the pain is from the L3/4 level. She continues to complain of pain in her bilateral quads that is better that does not go below knees bilaterally. Plan: -PT/OT ordered -no brace needed -IP Med Surg. DC On hold due to new issues of pain -If pain does not improve, will plan for surgery on Thursday12/21/17 for extension of her fusion at L3-4 -continue with current pain management strategy -patient discussed with Dr Willis -pts has rxs for pain medications/muscle relaxant Subjective: sitting in chair, denies pain with sitting, walking increases leg pain Objective: AxO x4 PERRLA MARTELL x4 5/5 BUE, BLE Sensation intact to light touch BLE Steri strips CDI Neuro Check Frequency: per routine Urinary Catheter in Place: No - Physician Discussed Patient with : Lazaro Neurosurgery Physical Exam - Vitals, I&O, Labs I and O 12/18/17 12/19/17 12/20/17 05:59 05:59 05:59 Intake Total 525 1350 Output Total 1900 1 Balance -1375 1349 Intake: Oral (ml) 525 1350 Output: Urine (ml) 1900 1 Catheter 1400 Toilet 500 1 Other: Number of Voids Toilet 1 1 1 Number of Stools Catheter 1 Toilet 1 Vital Signs Temp Pulse Resp BP Pulse Ox 36.7 C 76 18 147/81 H 94 12/19/17 07:43 12/19/17 07:43 12/19/17 07:43 12/19/17 07:43 12/19/17 07:43 ICD10 Worksheet Patient Problems: Problems Problem Status Onset Lumbar radicular pain Acute Lumbar stenosis Acute
[2017-12-19] MEDS: MELATONIN 3 MG TAB PO SCH (20:40)
[2017-12-20] MEDS: ACETAMINOPHEN 500 MG TAB PO PRN ×3 (02:02→17:38)
[2017-12-20] MEDS: METHOCARBAMOL 750 MG TAB PO PRN ×3 (02:02→14:38)
[2017-12-20] MEDS: oxyCODONE IR 5 MG TAB PO PRN ×5 (04:39→20:35)
[2017-12-20] MEDS ORDERED: methylPREDNISolone 4 MG TAB PO SCH (07:30)
[2017-12-20] MEDS: GABAPENTIN 100 MG CAP PO SCH ×3 (08:58→22:14)
[2017-12-20] MEDS: SENNOSIDES/DOCUSATE SODIUM TAB PO SCH ×2 (08:58→20:27)
[2017-12-20] MEDS: FAMOTIDINE 20 MG TAB PO SCH ×2 (08:59→20:31)
[2017-12-20] MEDS: methylPREDNISolone 4 MG TAB PO SCH ×2 (08:59→20:31)
[2017-12-20] MEDS: ENOXAPARIN 40 MG/0.4 ML SYR SC SCH (09:22)
--- NOTE | 2017-12-20 11:37 | NEUSURGPN ---
Date of Surgery: 12/14/17 Post Op Day: 6 Assessment/Plan: Assessment: 72 yr old F s/p T12 laminectomy for disc herniation POD #6 Pt developed lower back pain that was worse and 6 days ago developed BLE pain in the anterior and lateral thighs. She was started on gabapentin and NSAIDs initially. Now she is on PO steroids and a higher dose of gabapentin. We recommended that she get new MRIs and this was completed. We believe that the pain is from the L3/4 level. Plan: -PT/OT ordered -no brace needed -IP Med Surg. DC On hold due to new issues of pain -Bilateral lateral thigh pain continues which worsens with ambulation, back pain appears to be similar to her chronic back pain -Patient and family deciding if they would like to try an injection before proceeding with surgery. Will make NPO at midnight for injection vs surgery tomorrow -spent 35 minutes at bedside speaking with patient and family -continue with current pain management strategy -patient discussed with Dr Willis who will contact patient sometime today to discuss -pts has rxs for pain medications/muscle relaxant Subjective: sitting in chair, bilateral lateral thigh pain with ambulation Objective: AxO x4 PERRLA MARTELL x4 5/5 BUE, BLE Sensation intact to light touch BLE Steri strips CDI Neuro Check Frequency: per routine Urinary Catheter in Place: No - Physician Discussed Patient with : Lazaro Neurosurgery Physical Exam - Vitals, I&O, Labs I and O 12/19/17 12/20/17 12/21/17 05:59 05:59 05:59 Intake Total 1350 3000 500 Output Total 1 100 Balance 1349 3000 400 Intake: Oral (ml) 1350 3000 500 Output: Urine (ml) 1 100 Toilet 1 100 Other: Intake Quantity Yes Yes Sufficient Number of Voids Toilet 1 2 Number of Stools Toilet 1 2 Vital Signs Temp Pulse Resp BP Pulse Ox 36.3 C 88 14 145/78 H 98 12/20/17 08:00 12/20/17 08:00 12/20/17 08:00 12/20/17 08:00 12/20/17 08:00 ICD10 Worksheet Patient Problems: Problems Problem Status Onset Lumbar radicular pain Acute Lumbar stenosis Acute
[2017-12-20] MEDS: MELATONIN 3 MG TAB PO SCH (20:30)
[2017-12-20] MEDS: METHOCARBAMOL 750 MG TAB PO SCH ×2 (20:30→22:15)
[2017-12-21] MEDS: oxyCODONE IR 5 MG TAB PO PRN ×2 (01:40→06:06)
[2017-12-21] MEDS: METHOCARBAMOL 750 MG TAB PO SCH ×4 (06:06→23:09)
[2017-12-21] MEDS ORDERED: methylPREDNISolone 4 MG TAB PO SCH ×2 (07:30)
[2017-12-21] MEDS: GABAPENTIN 100 MG CAP PO SCH ×3 (08:43→23:08)
[2017-12-21] MEDS: FAMOTIDINE 20 MG TAB PO SCH ×2 (08:43→23:16)
[2017-12-21] MEDS: SENNOSIDES/DOCUSATE SODIUM TAB PO SCH ×2 (08:44→23:09)
--- NOTE | 2017-12-21 08:50 | NEUSURGPN ---
Assessment/Plan: Assessment: 72 yr old F s/p T12 laminectomy for disc herniation POD #7 Pt developed lower back pain that was worse and 7 days ago developed BLE pain in the anterior and lateral thighs. She was started on gabapentin and NSAIDs initially. Now she is on PO steroids and a higher dose of gabapentin. Patient with stenosis at L3/4, Based on thsi recommended Hardware exploration with possible removal L3/4 TLIF with L2-5 PSF Plan: -PT/OT ordered -IP Med Surg. DC On hold due to new issues of pain -Bilateral lateral thigh pain continues which worsens with ambulation, back pain appears to be similar to her chronic back pain -continue with current pain management strategy -patient discussed with Dr Willis who will contact patient sometime today to discuss Patient has UTI, will consult medicine to see if okay to proceed with surgery today. Patient currently NPO for surgery later today Subjective: Leg pain continues would like to proceed with surgery. Objective: AxO x4 PERRLA MARTELL x4 5/5 BUE, BLE Sensation intact to light touch BLE Thoracic incision CDI Neurosurgery Physical Exam - Vitals, I&O, Labs I and O 12/20/17 12/21/17 12/22/17 05:59 05:59 05:59 Intake Total 3000 2700 200 Output Total 1700 250 Balance 3000 1000 -50 Intake: Oral (ml) 3000 2700 200 Output: Urine (ml) 1700 250 Toilet 1700 250 Other: Intake Quantity Yes Yes Sufficient Number of Voids Toilet 2 1 Number of Stools Toilet 2 Vital Signs Temp Pulse Resp BP Pulse Ox 37.2 C 86 16 134/78 H 95 12/21/17 07:38 12/21/17 07:38 12/21/17 07:38 12/21/17 07:38 12/21/17 07:38 ICD10 Worksheet Patient Problems: Problems Problem Status Onset Lumbar radicular pain Acute Lumbar stenosis Acute
[2017-12-21 10:32] LABS: PLATELET COUNT 254 10^3/uL (150-400)
[2017-12-21 10:40] LABS: INR 1.05 (0.83-1.16); PROTIME(PATIENT) 13.9 SEC (12.0-15.0)
[2017-12-21] MEDS ORDERED: NS 1,000 ML IV SCH ×2 (12:15→15:00)
[2017-12-21] MEDS ORDERED: BACITRACIN 50,000 UNITS/10 ML SYR IRR ONE (12:42)
[2017-12-21] MEDS ORDERED: EPINEPHrine 1 MG/ML INJ ONE (12:42)
[2017-12-21] MEDS ORDERED: BUPIVACAINE 0.25% 30 ML SDV ONE (12:42)
[2017-12-21] MEDS ORDERED: THROMBIN (BOVINE) 20,000 UNIT VIAL TP ONE (12:42)
[2017-12-21] MEDS ORDERED: CHLORHEXIDINE GLUC HIBICLENS 118 ML BTL TP ONE (12:42)
[2017-12-21] MEDS ORDERED: LR 1,000 ML IV ONE (13:08)
[2017-12-21] MEDS ORDERED: ceFAZolin 2 GM/DEXTROSE 100 ML IV ONE ×2 (15:00→16:45)
[2017-12-21] MEDS ORDERED: CEFAZOLIN 2 GM/DEXTROSE/100 ML BAG IV ONE (15:12)
--- NOTE | 2017-12-21 15:12 | PDANEPAE ---
ANE Past Medical History - Cardiovascular History Hx Hypertension: No Hx Arrhythmias: No Hx Chest Pain: No Hx Coronary Artery / Peripheral Vascular Disease: No Hx CHF / Valvular Disease: No Hx Palpitations: No - Pulmonary History Hx COPD: No Hx Asthma/Reactive Airway Disease: No Hx Recent Upper Respiratory Infection: No Hx Oxygen in Use at Home: No Hx Sleep Apnea: No Sleep Apnea Screening Result - Last Documented: Negative - Neurologic History Hx Cerebrovascular Accident: No Hx Seizures: No Hx Dementia: No Neurologic History Comment: hx of five previous back surgeries. 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 spinal decompressions and fusions x5. hysterectomy. big toe joint replacement. varicose vein stripping. dental procedures ANE Review of Systems Review of Systems: - Exercise capacity METS (RN): 4 METS ANE Patient History - Allergies Allergies/Adverse Reactions: CATS Allergy (Uncoded 12/07/17 12:32) Itching STRAWBERRIES Allergy (Uncoded 12/07/17 12:32) Itching - Home Medications Home Medications: Ascorbic Acid [Vitamin C 500 mg (*)] 500 mg PO SUTUTHSA 12/07/17 [Last Taken ] Calcium Carbonate [Oyster Shell Calcium 500 mg (*)] 500 mg PO SUTUTHSA 12/07/17 [Last Taken 12/10/17] Carboxymethylcellulose 1% [Refresh Celluvisc (*)] 1 drop EACHEYE DAILY PRN 12/07 [Last Taken 12/13/17] Cholecalciferol Vit D3 [Vitamin D3 (*)] 1,000 units PO MWF 12/07/17 [Last Taken 12/10/17] Cholecalciferol Vit D3 [Vitamin D3 2000 units tab (OTC)] 2,000 units PO SUTUTHSA 12/07/17 [Last Taken 12/10/17] Docusate Sodium [Colace 100 MG (*)] 200 mg PO TID 12/07/17 [Last Taken 12/14/17 05:45] Gabapentin [Neurontin 100 MG (*)] 200 mg PO DAILY@1830 12/07/17 [Last Taken 23:00] Herbals/Supplements -Info Only 1 ea PO DAILY 12/07/17 [Last Taken 12/04/17] Melatonin [Melatonin 3 MG (*)] 3 mg PO HS 12/07/17 [Last Taken 12/10/17] Multivitamins [Multivitamin (*)] 1 each PO MWF 12/07/17 [Last Taken 12/04/17] Sennosides [Senna Lax] 1 - 2 each PO HS 12/07/17 [Last Taken 12/13/17 09:00] Vitamin B Complex [Vitamin B Complex (OTC)] 1 each PO SUTUTHSA 12/07/17 [Last Taken 12/04/17] oxyCODONE IR [Oxycodone Ir (*)] 5 mg PO Q4HRS 12/07/17 [Last Taken 12/14/17 05: 45] - NPO status NPO Since - Liquids (Date): 12/21/17 NPO Since - Liquids (Time): 12:20 NPO Since - Solids (Date): 12/20/17 NPO Since - Solids (Time): 00:00 - Smoking Hx Smoking Status: Never smoked - Family Anes Hx Family Hx Anesthesia Complications: none ANE Labs/Vital Signs - Labs Result Diagrams: 12/21/17 10:25 12/21/17 10:25 - Vital Signs Blood Pressure: 144/88 Heart Rate: 86 Respiratory Rate: 16 O2 Sat (%): 95 Height: 149.86 cm Weight: 47.627 kg ANE Physical Exam - Airway Mallampati Score: Class 2 - ASA Status ASA Status: II ANE Anesthesia Plan Anesthesia Plan: general endotracheal anesthesia
[2017-12-21] MEDS ORDERED: fentaNYL 100 MCG/2 ML INJ ONE ×3 (15:15→21:36)
[2017-12-21] MEDS ORDERED: MIDAZOLAM 2 MG/2 ML VIAL ONE (15:15)
[2017-12-21] MEDS ORDERED: PROPOFOL/EMULSION 500 MG/50 ML BOTTLE IV ONE ×2 (15:16→18:20)
[2017-12-21] MEDS ORDERED: PROPOFOL 200 MG/20 ML VIAL ONE (15:16)
[2017-12-21] MEDS ORDERED: ONDANSETRON 4 MG/2 ML VIAL ONE (16:22)
[2017-12-21] MEDS ORDERED: ROCURONIUM 50 MG/5 ML VIAL ONE (16:22)
[2017-12-21] MEDS ORDERED: METOCLOPRAMIDE 10 MG/2 ML VIAL ONE (16:23)
[2017-12-21] MEDS ORDERED: PHENYLEPHRINE HCL 100 MCG/ML SYR ONE (16:23)
--- NOTE | 2017-12-21 17:10 | PDHOSCONS ---
History and Physical - Chief Complaint Acute polyuria - History of Present Illness Primary care provider: Dr. Tuttle Primary neurosurgeon: Dr. Kendrick Willis Reason for consultation: Possible urinary tract infection HPI: 72-year-old female presents for T12 laminectomy and subsequent TLIF/PSF by Neurosurgery complicated by acute onset of polyuria, characterized as visibly notable increased urinary frequency per her nursing staff provider. The onset of her symptoms was 2 nights prior, in the context of volitional polydipsia. The patient subsequently notice some associated change in her urine color, notably pink/orange in color with a slight sensation with her urinary stream. She denies any overt abdominal pain or dysuria. She reports that she has been drinking water profusely in order to hydrate prior to her upcoming surgery, and she believes that this had exacerbated her polyuria. She denies ever experiencing a urinary tract infection in the past. She did have a Campbell catheter placed on 12/15. On the date of this evaluation, the patient reports that she has some associated fatigue secondary to poor sleep on the evening prior to this evaluation, as the patient had numerous nursing care needs. She also reports 2 bowel movements on the day prior to this evaluation. She is currently NPO for a scheduled surgery this afternoon. History Information - Allergies/Home Medication List Allergies/Adverse Reactions: CATS Allergy (Uncoded 12/07/17 12:32) Itching STRAWBERRIES Allergy (Uncoded 12/07/17 12:32) Itching Home Medications: Ascorbic Acid [Vitamin C 500 mg (*)] 500 mg PO SUTUTHSA 12/07/17 [Last Taken ] Calcium Carbonate [Oyster Shell Calcium 500 mg (*)] 500 mg PO SUTUTHSA 12/07/17 [Last Taken 12/10/17] Carboxymethylcellulose 1% [Refresh Celluvisc (*)] 1 drop EACHEYE DAILY PRN 12/07 [Last Taken 12/13/17] Cholecalciferol Vit D3 [Vitamin D3 (*)] 1,000 units PO MWF 12/07/17 [Last Taken 12/10/17] Cholecalciferol Vit D3 [Vitamin D3 2000 units tab (OTC)] 2,000 units PO SUTUTHSA 12/07/17 [Last Taken 12/10/17] Docusate Sodium [Colace 100 MG (*)] 200 mg PO TID 12/07/17 [Last Taken 12/14/17 05:45] Gabapentin [Neurontin 100 MG (*)] 200 mg PO DAILY@1830 12/07/17 [Last Taken 23:00] Herbals/Supplements -Info Only 1 ea PO DAILY 12/07/17 [Last Taken 12/04/17] Melatonin [Melatonin 3 MG (*)] 3 mg PO HS 12/07/17 [Last Taken 12/10/17] Multivitamins [Multivitamin (*)] 1 each PO MWF 12/07/17 [Last Taken 12/04/17] Sennosides [Senna Lax] 1 - 2 each PO HS 12/07/17 [Last Taken 12/13/17 09:00] Vitamin B Complex [Vitamin B Complex (OTC)] 1 each PO SUTUTHSA 12/07/17 [Last Taken 12/04/17] oxyCODONE IR [Oxycodone Ir (*)] 5 mg PO Q4HRS 12/07/17 [Last Taken 12/14/17 05: 45] I have personally reviewed and updated: family history, medical history, social history, surgical history - Past Medical History Additional medical history: Disc herniation. L3 and L4 stenosis. subcutaneous lymphoma - Surgical History Additional surgical history: T12 laminectomy, C2-C3 fusion 2010, L4-L5 fusion 2004 - Family History Additional family history: No family history of nephrolithiasis, her father had congestive heart failure - Social History Smoking Status: Never smoked Alcohol Use: Occasionally Drug Use: None Additional social history: Patient is normally physically active and independent ADLs Review of Systems Review of Systems: ROS: 10pt was reviewed & negative except for what was stated in HPI & below Genitourinary: Reports: frequency, hematuria, other (Discomfort) Physical Exam Physical Exam: Temp Pulse Resp BP Pulse Ox 37.2 C 86 16 144/88 H 95 12/21/17 13:11 12/21/17 15:12 12/21/17 15:12 12/21/17 15:12 12/21/17 15:12 O2 (L/minute) 2 Constitutional: no apparent distress, appears nourished, not in pain, No uncomfortable Eyes: PERRL, anicteric sclera, EOMI Ears, Nose, Mouth, Throat: hearing normal, ears appear normal, no oral mucosal ulcers, other (Tacky mucous membranes) Cardiovascular: regular rate and rhythym, no murmur, rub, or gallop, No edema Respiratory: no respiratory distress, no rales or rhonchi, clear to auscultation Gastrointestinal: normoactive bowel sounds, soft, non-tender abdomen, no palpable masses, No distension Genitourinary: no bladder fullness, no bladder tenderness, other (No CVA tenderness) Neurologic: AAOx3, sensation intact bilaterally, No weakness (5/5 motor strength bilateral lower extremities on dorsi and plantar flexion) Psychiatric: interacting appropriately, not anxious, not encephalopathic, thought process linear Lab Data & Imaging Review 12/21/17 10:25 12/21/17 10:25 WBC 11.74 10^3/uL (3.80-9.50) H 12/21/17 10:25 RBC 4.33 10^6/uL (4.18-5.33) 12/21/17 10:25 Hgb 14.4 g/dL (12.6-16.3) 12/21/17 10:25 Hct 40.3 % (38.0-47.0) 12/21/17 10:25 MCV 93.1 fL (81.5-99.8) 12/21/17 10:25 MCH 33.3 pg (27.9-34.1) 12/21/17 10:25 MCHC 35.7 g/dL (32.4-36.7) 12/21/17 10:25 RDW 11.2 % (11.5-15.2) L 12/21/17 10:25 Plt Count 254 10^3/uL (150-400) 12/21/17 10:25 MPV 8.7 fL (8.7-11.7) 12/21/17 10:25 Neut % (Auto) 87.1 % (39.3-74.2) H 12/21/17 10:25 Lymph % (Auto) 4.9 % (15.0-45.0) L 12/21/17 10:25 Dade % (Auto) 7.2 % (4.5-13.0) 12/21/17 10:25 Eos % (Auto) 0.3 % (0.6-7.6) L 12/21/17 10:25 Baso % (Auto) 0.2 % (0.3-1.7) L 12/21/17 10:25 Nucleat RBC Rel Count 0.0 % (0.0-0.2) 12/21/17 10:25 Absolute Neuts (auto) 10.23 10^3/uL (1.70-6.50) H 12/21/17 10:25 Absolute Lymphs (auto) 0.58 10^3/uL (1.00-3.00) L 12/21/17 10:25 Absolute Monos (auto) 0.85 10^3/uL (0.30-0.80) H 12/21/17 10:25 Absolute Eos (auto) 0.04 10^3/uL (0.03-0.40) 12/21/17 10:25 Absolute Basos (auto) 0.02 10^3/uL (0.02-0.10) 12/21/17 10:25 Absolute Nucleated RBC 0.00 10^3/uL (0-0.01) 12/21/17 10:25 Immature Gran % 0.3 % (0.0-1.1) 12/21/17 10:25 Immature Gran # 0.04 10^3/uL (0.00-0.10) 12/21/17 10:25 RBC/WBC/PLT Morphology TNP 12/21/17 10:25 Platelet Estimate TNP 12/21/17 10:25 PT 13.9 SEC (12.0-15.0) 12/21/17 10:25 INR 1.05 (0.83-1.16) 12/21/17 10:25 APTT 30.7 SEC (23.0-38.0) 12/21/17 10:25 Sodium 135 mEq/L (135-145) 12/21/17 10:25 Potassium 4.3 mEq/L (3.3-5.0) 12/21/17 10:25 Chloride 99 mEq/L (97-110) 12/21/17 10:25 Carbon Dioxide 24 mEq/l (22-31) 12/21/17 10:25 Anion Gap 12 mEq/L (6-14) 12/21/17 10:25 BUN 13 mg/dL (7-23) 12/21/17 10:25 Creatinine 0.5 mg/dL (0.6-1.0) L 12/21/17 10:25 Estimated GFR > 60 12/21/17 10:25 Glucose 117 mg/dL (70-100) H 12/21/17 10:25 Calcium 9.8 mg/dL (8.5-10.4) 12/21/17 10:25 Urine Color YELLOW 12/21/17 07:48 Urine Appearance TURBID 12/21/17 07:48 Urine pH 6.0 (5.0-7.5) 12/21/17 07:48 Ur Specific [place] 1.005 (1.002-1.030) 12/21/17 07:48 Urine Protein 1+ (NEGATIVE) H 12/21/17 07:48 Urine Ketones NEGATIVE (NEGATIVE) 12/21/17 07:48 Urine Blood 3+ (NEGATIVE) H 12/21/17 07:48 Urine Nitrate POSITIVE (NEGATIVE) H 12/21/17 07:48 Urine Bilirubin NEGATIVE (NEGATIVE) 12/21/17 07:48 Urine Urobilinogen NEGATIVE EU (0.2-1.0) 12/21/17 07:48 Ur Leukocyte Esterase 3+ (NEGATIVE) H 12/21/17 07:48 Urine RBC 50-182 /hpf (0-3) H 12/21/17 07:48 Urine WBC 50-182 /hpf (0-3) H 12/21/17 07:48 Ur Epithelial Cells NONE SEEN /lpf (NONE-1+) 12/21/17 07:48 Urine Bacteria 1+ /hpf (NONE SEEN) H 12/21/17 07:48 Urine Mucus TRACE /lpf (NONE-1+) 12/21/17 07:48 Urine Glucose NEGATIVE (NEGATIVE) 12/21/17 07:48 Visualized and Interpreted imaging results: Yes Interpretation: CT of the abdomen 11/23/2017 demonstrating diverticulosis, constipation, no other renal or bladder findings Assessment & Plan Assessment: 72-year-old female presents for disc herniation and T12 laminectomy, requiring subsequent L3-L4 TLIF and L2 to L5 PSF, complicated by possible urinary tract infection Plan: 1. Possible urinary tract infection. Acute, evidenced by urinalysis demonstrating 3+ leukocyte esterase, positive nitrates, significant white blood cells -this may be catheter associated as the patient did have Campbell catheter on and her symptom of mild urinary discomfort as well as her urinalysis are suggestive of urinary tract infection -given that the patient is having a surgical procedure with hardware manipulation, it is prudent to provide her with empiric IV antibiotic coverage -initiate ceftriaxone 1 g IV, will start with 3 days of therapy, and reassess for longer duration if it is felt that this may be a catheter associated UTI -check CBC and metabolic panel today, her leukocytosis is most likely secondary to recent steroid burst, but it certainly could also be secondary to UTI -will repeat CBC in a.m., urine culture was not sent with original urinalysis, low utility at this juncture given that she has received empiric IV antibiotics 2. Lumbar stenosis. Discussed with Dr. Kendrick Willis, I have suggested to him that it is safe for the patient to undergo her L3-L4 TLIF and L2-L5 PSF today with the above-mentioned antibiotic, does not require additional Ancef preoperatively, as she is currently covered for staph and strep by ceftriaxone -reviewed outside records including 12/10/[address] Kendrick Willis, indicating the patient had recently been taking combination of oxycodone, Aleve , Tylenol, subsequent postoperative pain management/care under the neurosurgical service Will continue to consult with this patient on a daily basis and offer further recommendations regarding the above tomorrow.
--- NOTE | 2017-12-21 20:10 | POSTOPPROG ---
Post Op Note Date of Operation: 12/21/17 Surgeon: Georgie Willis Fig Caprifier: Deja Streeter NP Anesthesiologist: Xiomara Anesthesia: GET(General Endotracheal) Pre-op Diagnosis: Lumbar stenosis, DDD Procedure: Hardware removal L4-5, TLIF L3-4 with PSF L2-5 Inf/Abcess present in the surg proc area at time of surgery?: No Depth: Deep Incisional (Fascial) EBL: 100-500 Total fluids administered: see anesthesia Complications: none Drains: Juan Carlos Newman Date of Surgery: 12/21/17 Post Op Day: 0 Assessment/Plan: Assessment: 72 yr old F s/p T12 laminectomy for disc herniation 12/14 and now s/ p L4-5 hardware removal, L3-4 TLIF with PSF L2-5 on 12/21 Plan: -PT/OT -Pain management -JUDE to suction -Post op xray in am -Please call neurosurgery with questions/concerns Subjective: waking up in pacu Objective: waking up in pacu PERRL No facial droop MAEx4 5/5 BUE, BLE Dressing CDI JUDE patent Appropriate Neuro Check Frequency Ordered: Yes
[2017-12-21] MEDS ORDERED: ONDANSETRON 4 MG/2 ML VIAL IVP PRN (20:15)
[2017-12-21] MEDS ORDERED: LR 500 ML IV PRN (20:15)
[2017-12-21] MEDS ORDERED: NALOXONE HCL 0.4 MG/ML INJ IVP PRN (20:15)
[2017-12-21] MEDS ORDERED: DEXAMETHASONE 4 MG/ML VIAL IVP PRN (20:15)
[2017-12-21] MEDS ORDERED: PROMETHAZINE HCL 25 MG/ML INJ IVP PRN (20:15)
[2017-12-21] MEDS ORDERED: DIAZEPAM 5 MG/ML 1 ML SYR IVP PRN (20:15)
--- NOTE | 2017-12-21 20:16 | POSTANESTH ---
Post Anesthetic Evaluation Cardiovascular Status: Normal, Stable Respiratory Status: Normal, Stable Level of Consciousness/Mental Status: Can Participate in Eval Pain Control: Adequate, Prn Tx Ordered Nausea/Vomiting Control: Adequate, Prn Tx Ordered Complications Possibly Related to Anesthesia: None Noted
[2017-12-21] MEDS ORDERED: HYDROmorphONE/DILAUDID 2 MG/ML INJ ONE (20:26)
[2017-12-21] MEDS: HYDROmorphONE/DILAUDID 2 MG/ML INJ IVP PRN ×6 (20:30→21:23)
[2017-12-21] MEDS ORDERED: HYDROmorphONE/DILAUDID 1 MG/ML INJ IVP PRN ×2 (20:56→20:57)
[2017-12-21] MEDS ORDERED: DIAZEPAM 5 MG/ML 1 ML SYR ONE (21:11)
[2017-12-21] MEDS: fentaNYL 100 MCG/2 ML INJ IVP PRN ×2 (21:38→21:50)
[2017-12-21] MEDS: MELATONIN 3 MG TAB PO SCH (23:10)
[2017-12-22] MEDS ORDERED: NALOXONE HCL 0.4 MG/ML INJ IVP PRN (00:50)
[2017-12-22] MEDS: HYDROmorphONE/DILAUDID 6 MG/30 ML PCA IV PRN ×2 (01:11→10:34)
[2017-12-22] MEDS: METHOCARBAMOL 750 MG TAB PO SCH ×4 (05:00→21:18)
[2017-12-22 05:15] LABS: PLATELET COUNT 200 10^3/uL (150-400)
--- NOTE | 2017-12-22 06:34 | GOP ---
DATE OF OPERATION: 12/21/2017 SURGEON: Anjum Willis MD NEUROSURGEON: Anjum Willis MD VETERINARY ASSISTANT: Deja Streeter, Nurse Practitioner PREOPERATIVE DIAGNOSIS: Critical spinal stenosis L3-4, lumbar fusion L4-5 with instrumentation L4-5, auto lumbar fusion at L2-3. POSTOPERATIVE DIAGNOSIS: Critical spinal stenosis L3-4, lumbar fusion L4-5 with instrumentation L4-5 , auto lumbar fusion at L2-3. PROCEDURE PERFORMED: Removal of posterior nonsegmental instrumentation at a single interspace at L4- 5 (03253), posterolateral and intervertebral arthrodesis L3-4 (60797), placement of biomechanical int ervertebral device L3-4 (88251), posterior segmental instrumentation L2, L3, L4, L5 (52875), spinal s tereotaxy, microscope. FINDINGS: SPECIMENS: None. ESTIMATED BLOOD LOSS: 250 cc. INDICATIONS: For the procedure: The patient is a mature woman, whom I know quite well, and I have d one several surgeries on, who had a known history of adjacent segment disease and severe spinal steno sis at L3-4, that she has been coping with really over the last year. She had an MRI in May of thi s year that showed terrible stenosis at L3-4. She appeared to have an autofusion at L2-3, and she oh d hospital-acquired fusion at L4-5 with hardware. This surgery was done in 2004 at the [facility]. She has been pursuing conservative measures to help with the problems in her low back, for several m onths, with some success. The family admits though that she had good and bad days, and while she was managing the pain, she still had several days where she did have significant pain from the stenosis. About a month ago, she developed symptoms that were quite severe on the right-hand side, and she sh owed up in my office about 3 weeks ago and I ordered a new MRI. I thought indeed the problem was at L3-4, but the new MRI showed a very large, right-sided disk protrusion behind the T12 vertebral body, and her symptoms did fit an upper lumbar root syndrome with pain radiating around the right flank, e salvatore into the inguinal region, and I suggested surgery on that alone. We discussed this at the time, and indeed she did know that she was going to need surgery at L3-4, but it is her hope that we could get through the holiday season before doing a large instrumented fusion, and I thought, given the fac t that her new symptoms were very severe on the right side and were attributable to the disk herniati on, we could simply remove that and keep the surgery small. This would fit her time table and allow her to get through the holidays before having a large surgery. She wanted to proceed, and last week she underwent an uncomplicated T12 transpedicular microdiskectomy with total relief of the right-side d pain that she had prior to that. Unfortunately, following that surgery, about 2 days later, as she began to mobilize more, she developed severe bilateral, radiating, relatively symmetric pain into kirstin th legs in the anterior thighs. We tried treating this pharmacologically and even gave her a steroid pack. Initially, we thought there might be a problem at the surgical site, and we did an MRI, and i t showed postop changes at the surgical site and a small hematoma but there was not dramatic compress ion of the cord. It did, however, continue to show critical stenosis at L3-4, and it was my feeling that we had simply exacerbated the pain at that level. We had prospectively planned to treat the L3- 4 level at the time of her last surgery. We simply did not plan prospectively to treat it on this ti me frame. I thought there was a small chance she could resolve this discomfort if we gave it more ti me, and indeed she did improve over the several days after developing this new pain. She did not, ho wever, improve enough. She still had great difficulty mobilizing and any kind of back extension woul d exacerbate the pain. Any flexion of the back caused very severe pain. I offered her surgery at th e L3-4 level. I did not think the surgical site at T12 could account for the bilateral symmetric meet n in the anterior thighs, and the only thing left to treat on her MRI with the critical stenosis at L 3-4. I suggested that we try this. She knew there was a small chance it would fail, but certainly t he problem at L3-4 has long been our agenda to treat, and even though we are treating it sooner than we had initially planned, it was prospectively planned at the time of the last operation. She unders tood this and she agreed to proceed. She knew there was risk of infection, spinal fluid leak, screw and hardware malposition, pseudoarthrosis, and continued symptoms. She knew there was a chance it wo uld fail to alleviate the terrible pain she was having in her anterior thighs, but I did not know juan carlos lly any other way to alleviate her discomfort. She wanted to proceed despite these risks. I discuss ed this with her at length and with her family, and my rationale for proceeding with this rather larg e surgery during this hospital stay, but I did not really see any other path forward, and they did wa nt to proceed. DESCRIPTION OF PROCEDURE: The patient was taken to the operating room, placed in supine position. G eneral anesthesia was begun. She was flipped prone onto the Juan Carlos table. Care was taken to pad al l points of contact. Her back was sterilely prepped and draped in usual fashion. She had an 18 mm i ncision at the T12 area from her prior surgery and she had a 13 cm incision from the L4-5 fusion that she had done at [place]. She was sterilely prepped and draped, and we opened the prior incision, but d id not actually use the entire incision that had been utilized at the [place]. The last centimeter and a half was unused, but we extended it rostrally for about a centimeter and a half. Our total length of this incision was 13 cm. The subcutaneous tissue was dissected using a PlasmaBlade down through t he fascia and a subperiosteal dissection was made down the L1 lamina. The L2 lamina, L3 lamina, L4 l madison were all exposed. The L4-5 lamina had been totally extirpated. We did not really expose the L 4 lamina. At L3, we went laterally and discovered the L4 pedicle screw and exposed the L4-5 pedicle screws on both sides. Care was taken to avoid dissection in the midline as she did have a significan t laminar defect with protruding dura on her MRI and we did not want to discover this. We completely exposed her prior hardware. It was [employer] hardware and we began to remove it. It was very d ifficult to remove. We drilled out around the screw head so that the hex remover tool could fit arou nd the entire screw head flush, and we were then able to remove this. We removed the casings that he ld the rods in place and the rods were easily removed. We then threaded a car driver into each of the pe dicle screws, and they were removed. The screws all had exceptional bony purchase. They were 7 mm s crews. They were 45 mm in length at L4 and 40 mm in length at L5. We elected to replace them with 7 .5 mm screws. We denuded the facet joints at L2-3 and L3-4 and then performed an O-arm spin and jennifer ched the Stealth reference frame to the L3 spinous process. We performed an O-arm spin, and using fr [facility] Stealth stereotaxy, we placed pedicle screws bilaterally at L2. The right L3 pedicle was robert te diminutive, and we chose a 5 mm screw there. The left L2 pedicle was also small but not quite so small, and we used a 5.5 mm screw there. On the left at L2, we used a 5 mm x 50, and on the right we used a 4.5 x 40. At L3, we used 6.5 mm x 45 mm screws, and L4-5 we used 7.5 mm screws. We performe d an O-arm spin. All the hardware was in excellent position without breach of the pedicle. All the screws stimulated at acceptable levels. We then placed rods down over the screws. We used a 70 mm r od on the right and an 80 mm on the left. We did not really distract the right-hand side. We distra cted it slightly and placed temporary cap screws over the charles, and then came to the left where we dis tracted significantly on the left at L3-4 to reduce the scoliotic kink there. I shot an x-ray, and I was a little bit unhappy. I wanted more reduction on the left-hand side, so we went back and change d the method of our distraction, loosening the cap screws at L2 and L3, leaving those loose, and lock ing down to L4-5. We then were able to distract a little bit further and the x-ray looked great at t hat point. We then final tightened all the cap screws on each side according to company specificatio n. We then decorticated the bone, removed all the soft tissue from the bone at L2-3, L3-4. We harve sted part of the L2 spinous process. We harvested all of the L3 spinous process, and then did a comp lete laminectomy of L3. L2 and L3 were indeed fused. We completely removed the L3 lamina. The L4 l madison was nonexistent. It had been completely removed from the prior surgery. We worked our way maurice n from the L2-3 level down through the L3-4 level, and as we were decompressing adjacent to the L4 pe dicle screws there was remarkable scar tissue adhering the hypertrophic facets to the dura, and this took considerable time dissecting on both sides. We decompressed both neural foramen at L3-4, and we decompressed both of the traversing L4 roots all the way down to the mid pedicle of L4 on each side. We did this without violating the dura, but it took really exceptional amount of time because of th e adherence of the scar to the dura and the hypertrophic facets. There was remarkably terrible spina l stenosis at L3-4 and this had been completely and thoroughly decompressed. We removed the left L3- 4 facet joint, mobilized the L4 root, swept it medially, and under the microscope we removed the L3-4 disk and the cartilaginous endplates to create arthrodesis at L3-4. We then chose a 7 mm [place] P [place] intervertebral device, packed the disk space with bone autograft, followed by BMP, followed by th e device. I was happy with the position of the device. We used 1 mg of BMP in the disk space. We t hen placed 1 mg posterolaterally. We decorticated all of the bone posterolaterally at L3-4. L2-3 ag ain were already fused. L4-5 was also fused. We did not revise the arthrodesis at those levels. We placed a subfascial drain, and then closed the incision in multiple layers using Vicryl sutures. St karina-Strips were applied to the skin. The patient was reversed from anesthesia, extubated, and transf erred to recovery room in stable condition. There were no complications. COMPLICATIONS: None. HARDWARE: Removed was [employer] side-loading pedicle screw system. Newly placed with [place] 5.5 mm system with titanium rods and a crescent peak intervertebra l device at L3-4. We used 2 mg of bone morphogenic protein. /[id number]/MODL
[2017-12-22] MEDS ORDERED: PHARMACY PAIN CONSULT 1 EA MISC SCH (07:00)
--- NOTE | 2017-12-22 08:08 | NEUSURGPN ---
Assessment/Plan: Assessment: 72 yr old F s/p T12 laminectomy for disc herniation 12/14 and now s/ p L4-5 hardware removal, L3-4 TLIF with PSF L2-5 on 12/21 Plan: -PT/OT -Pain management - on GARBAGE TRUCK HELPER, will add Flexeril. Also add polar care -JUDE to suction -Post op xray pending -TEDs, SCDs, lovenox POD#3 -Encourage OOB - d/w pt she needs to get up to chair today -Please call neurosurgery with questions/concerns -D/w Dr Willis Subjective: PT resting in bed, daughter at bedside. Had a lot of pain overnight. Objective: AAOx3 NAD VSS MAEx4 Motor 5/5 BLE +LT JPx1 270cc out Campbell in place Urinary Catheter in Place: Yes Urinary Catheter Indication: Surgical Requirement - Physician Discussed Patient with : [facility] Neurosurgery Physical Exam - Vitals, I&O, Labs I and O 12/21/17 12/22/17 12/23/17 05:59 05:59 05:59 Intake Total 2700 4320 450 Output Total 1700 1220 650 Balance 1000 3100 -200 Weight 47.627 kg Intake: Oral (ml) 2700 1320 450 IV Intake (ml) 3000 Output: Urine (ml) 1700 700 650 Catheter 450 650 Toilet 1700 250 Estimated Blood Loss (ml) 250 JUDE Drain Output (ml) 270 #1 Back 270 Other: Intake Quantity Yes Sufficient Number of Voids Catheter 1 Toilet 1 Vital Signs Temp Pulse Resp BP Pulse Ox 36.8 C 74 15 111/58 L 94 12/22/17 07:43 12/22/17 07:43 12/22/17 07:43 12/22/17 07:43 12/22/17 07:43 Laboratory Results 12/22/17 04:43 12/21/17 10:25 ICD10 Worksheet Patient Problems: Problems Problem Status Onset Lumbar radicular pain Acute Lumbar stenosis Acute
[2017-12-22] MEDS: CYCLOBENZAPRINE 10 MG TAB PO PRN (10:15)
[2017-12-22] MEDS: GABAPENTIN 100 MG CAP PO SCH ×3 (10:15→21:18)
[2017-12-22] MEDS: SENNOSIDES/DOCUSATE SODIUM TAB PO SCH ×2 (10:16→21:18)
[2017-12-22] MEDS: FAMOTIDINE 20 MG TAB PO SCH ×2 (10:16→21:18)
--- NOTE | 2017-12-22 17:35 | HOSPPROG ---
Hospitalist Progress Note Assessment/Plan: Assessment: 72-year-old female presents for disc herniation and T12 laminectomy, requiring subsequent L3-L4 TLIF and L2 to L5 PSF, complicated by possible urinary tract infection and acute toxic encephalopathy Plan: 1. Possible urinary tract infection. Acute, evidenced by urinalysis demonstrating 3+ leukocyte esterase, positive nitrates, significant white blood cells -this may be catheter associated as the patient did have Campbell catheter on and her symptom of mild urinary discomfort as well as her urinalysis are suggestive of urinary tract infection -leukocytosis improved today -D#2/10 Abx, cont CTX, can be adjusted to PO at time of discharge 2. Lumbar stenosis. POD#1, NSGY primary team for pain mgmt, rehab 3. Acute toxic encephalopathy. Evidenced by global brain dysfunction characterized as significantly impaired level of responsiveness and interaction , 2/2 toxic effects of anaesthesia and dilaudid pain Rx -d/w Dr. Willis, he and I both agree to stop patient's continuous dilaudid infusion on CRYPTOLOGIC TECHNICIAN OPERATOR/ANALYST, just have bolus capability enabled to prevent oversedation -monitor effect -hold on pain consult, as I think patient needs to metabolize current pain Rx prior to engaging in more robust discussions of mgmt 4. Acute blood loss anemia. New problem to this provider, further w/u indicated. Hgb declined to 9.3, no indication for transfusion today, recheck Hgb in AM Will continue to consult with this patient on a daily basis and offer further recommendations regarding the above tomorrow. Subjective: patient somnolent in chair Objective: Vital Signs Temp Pulse Resp BP Pulse Ox 36.8 C 82 14 121/64 H 100 12/22/17 16:00 12/22/17 16:00 12/22/17 16:00 12/22/17 16:00 12/22/17 16:00 Laboratory Results 12/22/17 04:43 12/21/17 10:25 12/21/17 12/22/17 12/23/17 05:59 05:59 05:59 Intake Total 2700 4320 450 Output Total 1700 1220 650 Balance 1000 3100 -200 PT 13.9 SEC (12.0-15.0) 12/21/17 10:25 INR 1.05 (0.83-1.16) 12/21/17 10:25 - Physical Exam Constitutional: no apparent distress, appears nourished, not in pain, No uncomfortable Cardiovascular: regular rate and rhythym, no murmur, rub, or gallop, No edema Respiratory: no respiratory distress, no rales or rhonchi, clear to auscultation , other (no respiratory suppression) Gastrointestinal: normoactive bowel sounds, soft, non-tender abdomen, No distension Neurologic: sensation intact bilaterally, other (AAOx0, motor 5/5 dorsiflexion bilat feet) Psychiatric: not anxious, encephalopathic, flat affect, other (somnolent, arousable to tactile stimuli), No agitated ICD10 Worksheet Patient Problems: Problems Problem Status Onset Lumbar stenosis Acute Lumbar radicular pain Acute
[2017-12-22] MEDS: oxyCODONE IR 5 MG TAB PO PRN (21:17)
[2017-12-22] MEDS: MELATONIN 3 MG TAB PO SCH (21:18)
[2017-12-23] MEDS: oxyCODONE IR 5 MG TAB PO PRN ×6 (03:48→21:32)
[2017-12-23 05:00] LABS: PLATELET COUNT 177 10^3/uL (150-400)
[2017-12-23] MEDS: METHOCARBAMOL 750 MG TAB PO SCH ×4 (05:22→21:31)
--- NOTE | 2017-12-23 07:16 | NEUSURGPN ---
Date of Surgery: 12/21/17 Post Op Day: 2 Assessment/Plan: Assessment: 72 yr old F s/p T12 laminectomy for disc herniation 12/14 and now s/ p L4-5 hardware removal, L3-4 TLIF with PSF L2-5 on 12/21 Plan: -PT/OT-CPM -Pain management - on RAILROAD WATCHMAN, Flexeril. Will try to get off of RAILROAD WATCHMAN today -increased gabapentin -JUDE to suction-will remove today -Post op xray pending today -TEDs, SCDs, lovenox POD#3 -bowel protocol-passing some gas but no BM-RN to work with pt today for this as well -Encourage OOB - d/w pt she needs to get out of bed and walk -Please call neurosurgery with questions/concerns -Seen by Dr Willis Subjective: No new complaints or concerns. Pt states that he back pain is a bit better. Legs feel better as well. No oh/neck/chest/abd or gu complaints. No f/c/n/v/ d. Objective: AAO x 3, PERRLA/EOMI no droop CN 2-12 grossly intact +lt touch 5/5 BUE/BLE = CDI JUDE in place-to be removed Neuro Check Frequency: per routine Urinary Catheter in Place: Yes Urinary Catheter Indication: Other (Use Comment) (to be removed today) Catheter Insertion Date: 12/21/17 - Physician Discussed Patient with : Lazaro Patient Seen by : Lazaro Neurosurgery Physical Exam - Vitals, I&O, Labs I and O 12/22/17 12/23/17 12/24/17 05:59 05:59 05:59 Intake Total 4320 2150 Output Total 1220 5280 Balance 3100 -3130 Weight 47.627 kg Intake: Oral (ml) 1320 1650 IV Intake (ml) 3000 500 Output: Urine (ml) 700 5150 Catheter 450 5150 Toilet 250 Estimated Blood Loss (ml) 250 JUDE Drain Output (ml) 270 130 #1 Back 270 130 Other: Intake Quantity Yes Sufficient Number of Voids Catheter 1 Vital Signs Temp Pulse Resp BP Pulse Ox 37.9 C 89 16 124/60 H 95 12/23/17 03:47 12/23/17 03:47 12/23/17 03:47 12/23/17 03:47 12/23/17 03:47 Laboratory Results 12/23/17 04:25 12/21/17 10:25 ICD10 Worksheet Patient Problems: Problems Problem Status Onset Lumbar radicular pain Acute Lumbar stenosis Acute - ICD10 Problem Qualifiers (1) Lumbar stenosis (2) Lumbar radicular pain
[2017-12-23] MEDS: CYCLOBENZAPRINE 10 MG TAB PO PRN (08:15)
[2017-12-23] MEDS: SENNOSIDES/DOCUSATE SODIUM TAB PO SCH ×2 (08:15→21:32)
[2017-12-23] MEDS: GABAPENTIN 400 MG CAP PO SCH ×3 (08:15→21:32)
[2017-12-23] MEDS: FAMOTIDINE 20 MG TAB PO SCH ×2 (08:15→21:31)
[2017-12-23] MEDS ORDERED: oxyCODONE IR 5 MG TAB PO PRN (08:40)
--- NOTE | 2017-12-23 09:05 | ASMTCMCOM ---
CM Note CM Note Notes: CM note which should have been saved 12/22/17 Pt had second surgery yesterday, L4-5 hardware removal and L3-4 TLIF with PSF L2-5. Attempted to talk to pt about d/c planning twice and she was sleeping soundly. Today PT rec inpatient rehab. Pt Keyon is at bedside, he states he thinks pt will want to go home and will be amenable to HHC. [facility] inpatient rehab is assessing and CM to follow pt progress. Date Signed: 12/23/2017 09:04 AM Electronically Signed By:RTAN New
[2017-12-23] MEDS ORDERED: MAGNESIUM CITRATE 300 ML BOTTLE PO ONE (11:27)
--- NOTE | 2017-12-23 17:03 | HOSPPROG ---
Hospitalist Progress Note Assessment/Plan: Assessment: 72-year-old female presents for disc herniation and T12 laminectomy, requiring subsequent L3-L4 TLIF and L2 to L5 PSF, complicated by possible urinary tract infection and acute toxic encephalopathy 2/2 pain Rx Plan: 1. Possible urinary tract infection. Acute, evidenced by urinalysis demonstrating 3+ leukocyte esterase, positive nitrates, significant white blood cells -this may be catheter associated as the patient did have Campbell catheter on and her symptom of mild urinary discomfort as well as her urinalysis are suggestive of urinary tract infection -leukocytosis resolved -D#3/ Abx, cont CTX, can be adjusted to PO at time of discharge 2. Lumbar stenosis. POD#2, NSGY primary team for pain mgmt, rehab 3. Acute toxic encephalopathy. Evidenced by global brain dysfunction characterized as significantly impaired level of responsiveness and interaction , 2/2 toxic effects of anaesthesia and dilaudid pain Rx -resolved 4. Acute blood loss anemia. Hgb stable at 9.3, no indication for transfusion today 5. Chronic back pain w/ continuous opiate dependency. Patient taking PO oxy IR 10mg x 6 weeks prior to surgery, likely has developed opiate tolerance -counseled patient and that reducing her dosage and frequency of Oxy IR is advisable, and will continue the PRN freq as q3h but suggested she try to space -counseled her that constipation will worsen w/ immobility, so recommend up to chair, therapies, ongoing scheduled senokot, and introduce mag citrate -counseled on IS usage, patient able to pull > 1.5L w/ effort Will continue to consult with this patient on a daily basis and offer further recommendations regarding the above tomorrow. Subjective: patient requesting oxy IR exactly every 3 hours, yet to have BM, increased abd distension Objective: Vital Signs Temp Pulse Resp BP Pulse Ox 36.8 C 81 19 125/51 H 96 12/23/17 15:31 12/23/17 15:31 12/23/17 15:31 12/23/17 15:31 12/23/17 15:31 Laboratory Results 12/23/17 04:25 12/21/17 10:25 12/22/17 12/23/17 12/24/17 05:59 05:59 05:59 Intake Total 4320 2150 Output Total 1220 5345 1100 Balance 3100 -3195 -1100 PT 13.9 SEC (12.0-15.0) 12/21/17 10:25 INR 1.05 (0.83-1.16) 12/21/17 10:25 - Time Spent With Patient Time Spent with Patient: greater than 35 minutes Time Spent with Patient: Greater than 35 minutes spent on this patients care, greater than 50% of time spent counseling, educating, and coordinating care regarding the above mentioned plan. - Physical Exam Constitutional: no apparent distress, uncomfortable Cardiovascular: regular rate and rhythym, no murmur, rub, or gallop Respiratory: reduced air movement (bilat bases), No expiratory wheeze, No inspiratory crackles, No bronchial breath sounds Gastrointestinal: normoactive bowel sounds, distension (moderate), No tenderness , No guarding Neurologic: AAOx3, sensation intact bilaterally, weakness (4/5 motor bilat prox , 5/5 motor bilat distal LE) Psychiatric: interacting appropriately, not anxious, not encephalopathic, thought process linear ICD10 Worksheet Patient Problems: Problems Problem Status Onset Lumbar stenosis Acute Lumbar radicular pain Acute
[2017-12-23] MEDS: MELATONIN 3 MG TAB PO SCH (21:31)
[2017-12-23] MEDS: ACETAMINOPHEN 500 MG TAB PO PRN (21:47)
[2017-12-24] MEDS: oxyCODONE IR 5 MG TAB PO PRN ×6 (01:56→21:11)
[2017-12-24] MEDS: METHOCARBAMOL 750 MG TAB PO SCH ×4 (05:44→21:11)
--- NOTE | 2017-12-24 07:36 | NEUSURGPN ---
Date of Surgery: 12/21/17 Post Op Day: 3 Assessment/Plan: Assessment: 72 yr old F s/p T12 laminectomy for disc herniation 12/14 and now s/ p L4-5 hardware removal, L3-4 TLIF with PSF L2-5 on 12/21 Plan: -PT/OT-CPM -Pain management - weaning INVENTORY CONTROL SPECIALIST, Flexeril -post op xrays look good-reviewed with Pt and Dr Willis -increased gabapentin has helped -JUDE removed -PT/OT-CPM -pt had BM yesterday -TEDs, SCDs, lovenox POD#3 -bowel protocol-cpm -Encourage OOB - d/w pt she needs to get out of bed and walk -Please call neurosurgery with questions/concerns -Seen by Dr Willis Subjective: Awake and alert. Pt is better today c/w yesterday. No oh/neck/chest/abd or gu complaints. Eating/drinking and voiding. No f/c/n/v/d. Objective: AAO x 3, PERRLA/EOMI no droop CN 2-12 grossly intact +lt touch 5/5 BUE/BLE = CDI JUDE site looks good Neuro Check Frequency: per routine Urinary Catheter in Place: No Catheter Insertion Date: 12/21/17 - Physician Discussed Patient with : Lazaro Patient Seen by : Lazaro Neurosurgery Physical Exam - Vitals, I&O, Labs I and O 12/23/17 12/24/17 12/25/17 05:59 05:59 05:59 Intake Total 2150 200 Output Total 5345 3000 600 Balance -3195 -2800 -600 Intake: Oral (ml) 1650 200 IV Intake (ml) 500 Output: Urine (ml) 5150 3000 600 Catheter 5150 1100 Toilet 1900 600 JUDE Drain Output (ml) 195 #1 Back 195 Other: Intake Quantity Yes Yes Sufficient Number of Voids Bedside Commode 1 Catheter 1 Toilet 1 1 Number of Stools Bedside Commode 1 Vital Signs Temp Pulse Resp BP Pulse Ox 37.3 C 90 14 114/55 L 93 12/23/17 23:25 12/23/17 23:25 12/23/17 23:25 12/23/17 23:25 12/23/17 23:25 Laboratory Results 12/23/17 04:25 12/21/17 10:25 ICD10 Worksheet Patient Problems: Problems Problem Status Onset Lumbar radicular pain Acute Lumbar stenosis Acute - ICD10 Problem Qualifiers (1) Lumbar stenosis (2) Lumbar radicular pain
--- NOTE | 2017-12-24 09:15 | HOSPPROG ---
Hospitalist Progress Note Assessment/Plan: #UTI: no culture was done. Afebrile, WBC nl. Completed 4 days abx, will stop and monitor #Leukocytosis: resolved #Lumbar stensos: L4-5 hardware removal, L3-4 TLIF, PSF L2-5, POD#3 -JUDE drain #Acute on chronic back pain: off CLAIM ANALYST. PRN Robaxin, Gabapentin, Oxy. Consult [facility] for reike,meditation #Toxic encephalopathy: resolved #ABLA: H/H stable #Diet: regular #DVT: SCDs, ambulating Disp: please call with questions Subjective: back with moving. Walking the unit. BM yesterday Objective: Vital Signs Temp Pulse Resp BP Pulse Ox 36.6 C 85 17 139/77 H 96 12/24/17 08:41 12/24/17 08:41 12/24/17 08:41 12/24/17 08:41 12/24/17 08:41 Laboratory Results 12/23/17 04:25 12/21/17 10:25 12/23/17 12/24/17 12/25/17 05:59 05:59 05:59 Intake Total 2150 200 Output Total 5345 3000 600 Balance -3195 -2800 -600 PT 13.9 SEC (12.0-15.0) 12/21/17 10:25 INR 1.05 (0.83-1.16) 12/21/17 10:25 - Time Spent With Patient Time Spent with Patient: greater than 35 minutes Time Spent with Patient: Greater than 35 minutes spent on this patients care, greater than 50% of time spent counseling, educating, and coordinating care regarding the above mentioned plan. - Physical Exam Constitutional: no apparent distress Eyes: PERRL Ears, Nose, Mouth, Throat: moist mucous membranes Cardiovascular: regular rate and rhythym Respiratory: no respiratory distress Gastrointestinal: normoactive bowel sounds Genitourinary: no bladder fullness, No no bladder tenderness, No macias in urethra Skin: warm, No rash Musculoskeletal: full muscle strength, other (surgical incision dressed, no drainage or surrounding redness) Neurologic: AAOx3, CN II-XII Intact Psychiatric: interacting appropriately ICD10 Worksheet Patient Problems: Problems Problem Status Onset Lumbar radicular pain Acute Lumbar stenosis Acute
[2017-12-24] MEDS: SENNOSIDES/DOCUSATE SODIUM TAB PO SCH ×2 (09:39→19:46)
[2017-12-24] MEDS: FAMOTIDINE 20 MG TAB PO SCH ×2 (09:39→19:46)
[2017-12-24] MEDS: GABAPENTIN 400 MG CAP PO SCH ×3 (09:41→21:11)
[2017-12-24] MEDS: ACETAMINOPHEN 500 MG TAB PO PRN ×2 (13:53→19:45)
--- NOTE | 2017-12-24 15:28 | ASMTCMCOM ---
CM Note CM Note Notes: PT rec home care and 24/hr sup today, pt reports Ruddy and friends/family will be able to provide supervision. Pt hopes to d/c without home care PT, states this is her 7th spinal surgery and she feels comfortable going home without it. CM will check in with pt closer to d/c and pt will let CM know if she changes her mind. Date Signed: 12/24/2017 03:28 PM Electronically Signed By:TRAN New
[2017-12-24] MEDS: MELATONIN 3 MG TAB PO SCH (19:46)
[2017-12-25] MEDS: oxyCODONE IR 5 MG TAB PO PRN ×7 (00:55→22:19)
[2017-12-25] MEDS: METHOCARBAMOL 750 MG TAB PO SCH ×4 (05:12→22:19)
[2017-12-25] MEDS: ACETAMINOPHEN 500 MG TAB PO PRN ×3 (05:16→22:17)
[2017-12-25] MEDS: FAMOTIDINE 20 MG TAB PO SCH ×2 (09:25→22:18)
[2017-12-25] MEDS: GABAPENTIN 400 MG CAP PO SCH ×3 (09:25→22:18)
[2017-12-25] MEDS: SENNOSIDES/DOCUSATE SODIUM TAB PO SCH ×2 (09:25→22:19)
--- NOTE | 2017-12-25 10:13 | NEUSURGPN ---
Assessment/Plan: Assessment: 72 yr old F s/p T12 laminectomy for disc herniation 12/14 and now s/ p L4-5 hardware removal, L3-4 TLIF with PSF L2-5 on 12/21 Plan: -PT/OT-CPM -Pain management - off SLP, Flexeril -post op xrays look good -increased gabapentin has helped -PT/OT-CPM -TEDs, SCDs, lovenox POD#3 -bowel protocol-cpm -Encourage OOB -Please call neurosurgery with questions/concerns -Dispo planning likely for tomorrow -Discussed with Dr Willis Subjective: Pain under better control. Does not feel comfortable with movement and would like to work more with PT today Objective: AAO x 3, +lt touch 5/5 BUE/BLE = Incision CDI Catheter Insertion Date: 12/21/17 - Physician Discussed Patient with : Lazaro Neurosurgery Physical Exam - Vitals, I&O, Labs I and O 12/24/17 12/25/17 12/26/17 05:59 05:59 05:59 Intake Total 200 950 Output Total 3000 3850 700 Balance -2800 -2900 -700 Intake: Oral (ml) 200 950 Output: Urine (ml) 3000 3850 700 Catheter 1100 Toilet 1900 3850 700 Other: Intake Quantity Yes Yes Sufficient Number of Voids Bedside Commode 1 Toilet 1 1 Number of Stools Bedside Commode 1 Toilet 1 1 Vital Signs Temp Pulse Resp BP Pulse Ox 36.6 C 74 16 119/57 L 98 12/25/17 08:00 12/25/17 08:00 12/25/17 08:00 12/25/17 08:00 12/25/17 08:00 Laboratory Results 12/23/17 04:25 12/25/17 05:24 ICD10 Worksheet Patient Problems: Problems Problem Status Onset Lumbar radicular pain Acute Lumbar stenosis Acute
--- NOTE | 2017-12-25 12:42 | HOSPPROG ---
Hospitalist Progress Note Assessment/Plan: 72F s/p two lumbar surgeries on this admission # possible UTI - s/p rocephin x 5 days; dc today # back pain - off IV narcotics - cont gabapentin, robaxin, oxycodone # encephalopathy - resolved # ABLA post-op - stable Subjective: currently c/o low back pain 07/02 Objective: Vital Signs Temp Pulse Resp BP Pulse Ox 37.2 C 83 18 138/65 H 100 12/25/17 11:51 12/25/17 11:51 12/25/17 11:51 12/25/17 11:51 12/25/17 11:51 Laboratory Results 12/23/17 04:25 12/25/17 05:24 12/24/17 12/25/17 12/26/17 05:59 05:59 05:59 Intake Total 200 950 250 Output Total 3000 3850 700 Balance -2800 -2900 -450 PT 13.9 SEC (12.0-15.0) 12/21/17 10:25 INR 1.05 (0.83-1.16) 12/21/17 10:25 chart reviewed MRIs reviewed - Physical Exam Constitutional: uncomfortable Cardiovascular: regular rate and rhythym, no murmur, rub, or gallop Respiratory: no respiratory distress, no rales or rhonchi, clear to auscultation Gastrointestinal: soft, non-tender abdomen, no palpable masses, No guarding, No rebound, No distension ICD10 Worksheet Patient Problems: Problems Problem Status Onset Lumbar stenosis Acute Lumbar radicular pain Acute
[2017-12-25] MEDS: MELATONIN 3 MG TAB PO SCH (22:19)
[2017-12-26] MEDS: oxyCODONE IR 5 MG TAB PO PRN ×7 (02:28→22:46)
[2017-12-26] MEDS: ACETAMINOPHEN 500 MG TAB PO PRN ×2 (06:26→15:12)
[2017-12-26] MEDS: METHOCARBAMOL 750 MG TAB PO SCH ×4 (06:26→22:01)
--- NOTE | 2017-12-26 09:00 | SOAPPROG ---
[facility] Progress Note Assessment/Plan: Assessment: 72 yo F sp T12 laminectomy and L3/4 TLIF Plan: neuro: stable PT/OT working on pain control scd/marianna/lovenox for dvt prophylaxis post op x-rays look good hopefully dc soon please call with neuro changes 12/26/17 08:59 Subjective: back pain improving, no leg pain, no weakness. Objective: Vital Signs Temp Pulse Resp BP Pulse Ox 36.8 C 75 14 123/71 H 94 12/26/17 08:00 12/26/17 08:00 12/26/17 08:00 12/26/17 08:00 12/26/17 08:00 Laboratory Results 12/23/17 04:25 12/25/17 05:24 12/25/17 12/26/17 12/27/17 05:59 05:59 04:59 Intake Total 950 500 Output Total 3850 700 Balance -2900 -200 PT 13.9 SEC (12.0-15.0) 12/21/17 10:25 INR 1.05 (0.83-1.16) 12/21/17 10:25 AAOX4, +FC PERRL, EOMI, no facial droop 5/5 + light touch C/D/I ICD10 Worksheet Patient Problems: Problems Problem Status Onset Lumbar radicular pain Acute Lumbar stenosis Acute
--- NOTE | 2017-12-26 09:11 | HOSPPROG ---
Hospitalist Progress Note Assessment/Plan: 72F s/p two lumbar surgeries on this admission # possible UTI - s/p rocephin x 5 days; # back pain - off IV narcotics - cont gabapentin, robaxin, oxycodone # encephalopathy - resolved # ABLA post-op - stable Discussed with Tima Wright; hospital medicine will sign off; please reconsult with any additional questions or concerns Subjective: seen with sister; c/o back pain; tearful Objective: Vital Signs Temp Pulse Resp BP Pulse Ox 36.8 C 75 14 123/71 H 94 12/26/17 08:00 12/26/17 08:00 12/26/17 08:00 12/26/17 08:00 12/26/17 08:00 Laboratory Results 12/23/17 04:25 12/25/17 05:24 12/25/17 12/26/17 12/27/17 05:59 05:59 04:59 Intake Total 950 500 Output Total 3850 700 Balance -2900 -200 PT 13.9 SEC (12.0-15.0) 12/21/17 10:25 INR 1.05 (0.83-1.16) 12/21/17 10:25 - Physical Exam Constitutional: other (tearful) Cardiovascular: regular rate and rhythym, no murmur, rub, or gallop Respiratory: no rales or rhonchi, clear to auscultation, No expiratory wheeze, No inspiratory crackles, No bronchial breath sounds Gastrointestinal: other (soft, TTP), No guarding, No rebound, No distension ICD10 Worksheet Patient Problems: Problems Problem Status Onset Lumbar stenosis Acute Lumbar radicular pain Acute
[2017-12-26] MEDS: FAMOTIDINE 20 MG TAB PO SCH ×2 (09:32→22:01)
[2017-12-26] MEDS: SENNOSIDES/DOCUSATE SODIUM TAB PO SCH ×2 (09:32→22:01)
[2017-12-26] MEDS: GABAPENTIN 400 MG CAP PO SCH ×3 (09:33→22:01)
[2017-12-26] MEDS: MELATONIN 3 MG TAB PO SCH (22:01)
[2017-12-27] MEDS: ACETAMINOPHEN 500 MG TAB PO PRN (00:11)
[2017-12-27] MEDS: oxyCODONE IR 5 MG TAB PO PRN ×5 (01:01→14:40)
[2017-12-27] MEDS: METHOCARBAMOL 750 MG TAB PO SCH ×2 (05:11→11:44)
--- NOTE | 2017-12-27 06:39 | SOAPPROG ---
SOAP Progress Note Assessment/Plan: Assessment: 72 yo F sp T12 laminectomy and L3/4 TLIF Plan: neuro: stable PT/OT working on pain control UTI, on rocephin scd/marianna/lovenox for dvt prophylaxis post op x-rays look good dc today please call with neuro changes 12/26/17 08:59 12/27/17 06:39 Subjective: back pain improving, no leg pain, no weakness. Objective: Vital Signs Temp Pulse Resp BP Pulse Ox 36.7 C 78 16 154/84 H 98 12/26/17 23:09 12/26/17 23:09 12/26/17 23:09 12/26/17 23:09 12/26/17 23:09 Laboratory Results 12/23/17 04:25 12/25/17 05:24 12/26/17 12/27/17 12/28/17 06:59 05:59 05:59 Intake Total Output Total Balance PT 13.9 SEC (12.0-15.0) 12/21/17 10:25 INR 1.05 (0.83-1.16) 12/21/17 10:25 AAOx4, +FC PERRL, EOMI, no facial drop 5/5 + light touch C/D/I ICD10 Worksheet Patient Problems: Problems Problem Status Onset Lumbar radicular pain Acute Lumbar stenosis Acute
[2017-12-27] MEDS: FAMOTIDINE 20 MG TAB PO SCH (08:32)
[2017-12-27] MEDS: GABAPENTIN 400 MG CAP PO SCH (08:32)
[2017-12-27] MEDS: SENNOSIDES/DOCUSATE SODIUM TAB PO SCH (08:32)
[2017-12-27 08:45] VITALS: BP 143/78
--- NOTE | 2017-12-27 11:37 | ASDISCHSUM ---
Discharge Information Plan Status:Home with No Needs Medically Cleared to Leave:12/27/2017 Discharge Date:12/27/2017 CM D/C Disposition:Home, Routine, Self-Care ADT D/C Disposition:Home, Routine, Self-Care Projected Discharge Date:12/27/2017 12:00 PM Transportation at D/C:Family Discharge Delay Reason: Follow-Up Date:12/27/2017 12:00 PM Discharge Slot:1 - 8:01 am - 12:00 noon Final Diagnosis:T 12 Lami; L3/4 TLIF Placement Information Patient Contact Information Contact Name:MEGHAN Relationship: Address:[address] [place] [address] City:[place] Alternate Phone: State/Zip Code:[place] [address] Email: Financial Information Financial Class:Medicare Primary Plan Desc:MEDICARE INPATIENT Primary Plan Number:[id number] Secondary Plan Desc: Secondary Plan Number: Assessment Information LACE LACE Length of stay for Answers: 2 days current admission Acuity / Level of Answers: No Care: Did the patient have an inpatient admission? Comorbidities - select Answers: Opioid dependence all that apply / Chronic pain # of Emergency department Answers: 1-2 visits in the last 6 months Score: 7 Date Signed: 12/15/2017 12:06 PM Electronically Signed By:TRAN New [facility] CM Progress Note CM Note CM Note Notes: Pt had planned surgery for thoracic stenosis. Pt resides with spouse. PT rec home. Pt medically stable for d/c, no CM d/c needs identified. Date Signed: 12/15/2017 12:07 PM Electronically Signed By:TRAN New [facility] CM Progress Note CM Note CM Note Notes: Pt challenged by pain and spasms, PT rec home/HHC/SNF today. Pt considering another fusion, which could be Thursday. CM to follow. Date Signed: 12/18/2017 03:56 PM Electronically Signed By:TRAN New [facility] CM Progress Note CM Note CM Note Notes: CM note which should have been saved 12/22/17 Pt had second surgery yesterday, L4-5 hardware removal and L3-4 TLIF with PSF L2-5. Attempted to talk to pt about d/c planning twice and she was sleeping soundly. Today PT rec inpatient rehab. Pt Keyon is at bedside, he states he thinks pt will want to go home and will be amenable to [facility]. [facility] inpatient rehab is assessing and CM to follow pt progress. Date Signed: 12/23/2017 09:04 AM Electronically Signed By:TRAN New [facility] CM Progress Note CM Note CM Note Notes: PT rec home care and 24/hr sup today, pt reports Ruddy and friends/family will be able to provide supervision. Pt hopes to d/c without home care PT, states this is her 7th spinal surgery and she feels comfortable going home without it. CM will check in with pt closer to d/c and pt will let CM know if she changes her mind. Date Signed: 12/24/2017 03:28 PM Electronically Signed By:TRAN New Case Management Discharge Plan Note Case Management Discharge Discharge Order Complete? Answers: Yes Patient to Obtain Answers: via Family Medications Transportation Arranged Answers: Family/Friends Transport will Pick (Date 12/27/2017 12:00 PM & Time) Family Notified Answers: Yes Notes: present Discharge Comments Notes: Patient has been discharged home. Didn't feel the need for HC has had in the past. If needed she will contact her PCP. Date Signed: 12/27/2017 11:36 AM Electronically Signed By:Pavithra Ervin LCSW Intervention Information Intervention Type:*[place]-Signed Date of Service:12/15/2017 10:43 AM Patient Type:Observation Staff Member:Jennifer Al Hours: Discipline: Severity: Comment: Intervention Type:*IM-Signed Date of Service:12/25/2017 02:21 PM Patient Type:Inpatient Staff Member:Jnenifer Al Hours: Discipline: Severity: Comment:
--- NOTE | 2018-01-02 21:52 | GDS ---
OPERATIONS AND PROCEDURES: On 12/14/2017, patient underwent a T12 laminectomy for disk herniation wi logan Willis. On 12/21/2017, patient underwent hardware removal of L4-5 with transforaminal lumbar interbody fusion at L3-4 and posterior spinal fusion of L2 to L5 with Dr. Willis. HOSPITAL COURSE: The patient presented to [facility] on 12/14/2017 for a T12 laminec [place] for disk herniation. Surgery was performed by Dr. Willis. The patient was admitted to Med/Surg e where she initially experienced relief of her symptoms, but then progressed into having terrible bi lateral thigh pain with ambulation. New MRI of the thoracic and lumbar spine was performed on 2017, which showed stable surgical findings with postsurgical fluid at T12 and severe central canal s tenosis secondary to severe bilateral facet arthropathy at L3-4. Medical management was exhausted in cluding steroid treatments, physical therapy, occupational therapy, and pain medications. The patien t then elected to undergo more surgery and underwent hardware removal of L4-5 with transforaminal lum bar interbody fusion at L3-4 and posterior spinal fusion L2 to L5 with Dr. Willis on 12/21/2017. The patient tolerated the procedure well without complications and returned to her medical-surgical room , where she continued to receive pain management, Physical Therapy and Occupational Therapy. While o n the floor, the patient received DVT prophylaxis and all drains and catheters were removed. The pat ient was in stable condition and subsequently discharged home on 12/27/2017. The patient is schedule d to follow up in the office with Dr. Willis in 2 weeks for postoperative visit. She is instructed t o contact the office with any questions or concerns at [phone]. CONSULTS: Hospitalist medicine team. COMPLICATIONS: None. DISCHARGE MEDICATIONS: Please see medication reconciliation for details. DISCHARGE CONDITION: Stable. DISCHARGE INSTRUCTIONS: The patient was instructed to avoid any bending or twisting at the waist and not to lift greater than 10 pounds for the next 2 weeks. The patient was fitted with a lumbar brace , which she is to wear any time she is out of bed. It is okay for the patient to shower. She is to avoid submerging of her incisions for the next 2-3 weeks. The patient was instructed to call our off ice with any questions or concerns prior to her postoperative visit. /[id number]/MODL
== END 2017-12-27 15:14 | disposition home or self-care (01) | DRG 459 ==
LOC: F3N 06:51 → OBSVTOIN 12-16 08:57 → INTOOBSV 12-16 08:57
PROVIDERS: ADMIT Neurological Surgery; ATTEND Neurological Surgery
PROC: 0RT90ZZ Resection of Thoracic Vertebral Disc, Open Approach (ICD-10-PCS; principal; 2017-12-16)
PROC: 0QP004Z Removal of Internal Fixation Device from Lumbar Vertebra, Open Approach (ICD-10-PCS; 2017-12-21 16:15)
PROC: 0SG00AJ Fusion of Lumbar Vertebral Joint with Interbody Fusion Device, Posterior Approach, Anterior Column, Open Approach (ICD-10-PCS; 2017-12-21 16:15)
PROC: 0SG10JJ Fusion of 2 or more Lumbar Vertebral Joints with Synthetic Substitute, Posterior Approach, Anterior Column, Open Approach (ICD-10-PCS; 2017-12-21 16:15)
PROC: 0QB00ZZ Excision of Lumbar Vertebra, Open Approach (ICD-10-PCS; 2017-12-21 16:15)
PROC: 01NB0ZZ Release Lumbar Nerve, Open Approach (ICD-10-PCS; 2017-12-21 16:15)
PROC: 3E0U0GB Introduction of Recombinant Bone Morphogenetic Protein into Joints, Open Approach (ICD-10-PCS; 2017-12-21 16:15)
DX: M51.24 Other intervertebral disc displacement, thoracic region (principal); M48.061 Spinal stenosis, lumbar region without neurogenic claudication; M54.16 Radiculopathy, lumbar region; G92 Toxic encephalopathy; D62 Acute posthemorrhagic anemia; N39.0 Urinary tract infection, site not specified; Z98.1 Arthrodesis status
CPT/HCPCS: 97116-GP; 97161-GP; 97164-GP; 97166-GO; 97168-GO; 97530-GO; 97530-GP; 97535-GO; A9585; C1713; G8978-GP-CH; G8978-GP-CI; G8978-GP-CJ; G8978-GP-CL; G8979-GP-CH; G8979-GP-CI; G8980-GP-CH; G8987-GO-CI; G8987-GO-CM; G8988-GO-CI; G8989-GO-CI; J0171; J0690; J0696; J1030; J1100; J1170; J1650; J1885; J2250; J2270; J2370; J2405; J2704; J2710; J2765; J2930; J3010; J3360

== ENCOUNTER → 2017-12-31 | Outpatient (CLI) | payer OTHER | LOC: FIMAGING 11:05 | PROVIDERS: ATTEND Nurse Practitioner | DX: M79.604 Pain in right leg (principal); M79.605 Pain in left leg; R22.43 Localized swelling, mass and lump, lower limb, bilateral ==

== ENCOUNTER → 2018-01-20 | Outpatient (CLI) | payer OTHER | LOC: FIMAGING 15:02 | PROVIDERS: ATTEND Neurological Surgery | DX: Z09 Encounter for follow-up examination after completed treatment for conditions other than malignant neoplasm (principal); Z98.1 Arthrodesis status; M47.896 Other spondylosis, lumbar region ==

== ENCOUNTER → 2018-03-06 | Outpatient (CLI) | payer OTHER | LOC: FIMAGING 12:51 | PROVIDERS: ATTEND Neurological Surgery | DX: M43.16 Spondylolisthesis, lumbar region (principal); Z98.1 Arthrodesis status ==

== ENCOUNTER → 2018-04-07 | Outpatient (CLI) | payer OTHER | LOC: BMCIMAGING 10:56 | PROVIDERS: ATTEND Orthopaedic Surgery | DX: M16.11 Unilateral primary osteoarthritis, right hip (principal) ==

== ENCOUNTER → 2018-06-03 | Outpatient (CLI) | payer OTHER | LOC: BMCIMAGING 09:07 | PROVIDERS: ATTEND Orthopaedic Surgery | DX: M16.11 Unilateral primary osteoarthritis, right hip (principal) ==

== ENCOUNTER → 2018-07-03 | Outpatient (CLI) | payer OTHER | LOC: FIMAGING 12:31 | PROVIDERS: ATTEND Orthopaedic Surgery | DX: Z01.818 Encounter for other preprocedural examination (principal); M16.11 Unilateral primary osteoarthritis, right hip; M51.36 Other intervertebral disc degeneration, lumbar region; M51.37 Other intervertebral disc degeneration, lumbosacral region; M51.34 Other intervertebral disc degeneration, thoracic region; M41.84 Other forms of scoliosis, thoracic region; M41.86 Other forms of scoliosis, lumbar region; Z98.890 Other specified postprocedural states ==

== ENCOUNTER 2018-07-26 06:07 | Inpatient (IN) | payer OTHER ==
[~2018-07-26 06:07] MED LIST: ROPIVACAINE 0.2% 80 MG, EPINEPHrine 0.2 MG, KETOROLAC TROMETHAMINE 30 MG, morphINE 10 M... IU ONE; TRANEXAMIC ACID 1,000 MG in NS 100 ML IV ONE
[2018-07-26] MEDS ORDERED: LR 1,000 ML IV ONE (06:09)
[2018-07-26] MEDS ORDERED: ACETAMINOPHEN 325 MG TAB PO ONE (06:09)
[2018-07-26] MEDS ORDERED: FAMOTIDINE 20 MG TAB PO ONE (06:09)
[2018-07-26] MEDS ORDERED: LIDOCAINE 1% 2 ML INJ ID PRN (06:09)
[2018-07-26] MEDS ORDERED: ceFAZolin 2 GM/DEXTROSE 100 ML IV ONE (06:09)
--- NOTE | 2018-07-26 06:31 | PDHPUP ---
History & Physical Update H&P update statement: This history and physical update is based on an assessment of the patient which was completed after admission or registration (within 24 hours), but prior to the surgery/procedure. H&P update: no change in patient's condition since H&P completed
--- NOTE | 2018-07-26 06:31 | PDIAF ---
- Diagnosis Diagnosis: right hip djd Code Status: Full Code - Medication Management Discharge Medications: electronically signed and located in the Home Medication List. - Orders Services needed: Home Care, Physical Therapy Home Care Face to Face: I certify that this patient was under my care and that I had the required [id number] encounter meeting the encounter requirements on the discharge day. My findings support the fact that the patient is homebound as defined in Home Care Face to Face Continued: CMS Chapter 7 Medicare Benefits Manual 30.1.1 , The condition of the patient is such that there exists a normal inability to leave home and consequently, leaving home would require a considerable and taxing effort. Diet Recommendation: no restrictions on diet Diet Texture: Regular Texture Diet Additional Instructions: TOTAL JOINT ARTHROPLASTY DISCHARGE INSTRUCTIONS 1. Your surgeon follows the [facility] protocol for reducing your risk of DVT (blood clots) following surgery. Medication will be ordered to prevent blood clots. A sudden increase in calf pain and/or swelling could indicate a blood clot in your leg. If this occurs, please call your surgeon or his/her medical office assistant instructor. An ultrasound of the leg may be necessary to diagnose a blood clot. If you have conditions that make you a higher risk for blood clots, your surgeon may use more aggressive ways to prevent them. Notify your surgeon if you think you are a high risk for blood clots. 2. Wear your white surgical stockings (ANGELA hose) for 2 weeks. This decreases your swelling and may help prevent blood clots. It is ok to remove ANGELA hose at night time to give your legs a break. 3. Swelling and bruising in the surgical leg is common. If you feel that it is excessive, please notify your surgeon. 4. Elevate your surgical leg with the ankle above the hip several times every day. Please keep the leg straight when you elevate by putting pillows under your foot. Do not put pillows under your knee. This will make being able to fully straighten more difficult. This is uncomfortable, but try to do it as much as possible. 5. For total knee replacements use compressive wrap on your knee for 3-5 days after surgery, then you can discontinue it. 6. Use a walker or crutches for 1-2 weeks. Progress your weight-bearing as tolerated. You may start to use a cane when you feel stable and safe. 7. You will receive physical therapy instructions in the hospital. Continue those exercises at home. There are additional exercises in the total joint booklet you were given before surgery. Outpatient physical therapy will begin 7- 10 days after surgery. Please schedule this in advance. 8. Use ice on your knee at least 3-5 times every day for 30 minutes. This helps reduce pain and swelling. Also use it at night before falling asleep. 9. Leave your surgical dressing in place for 2 weeks. Your dressing is water resistant, but not waterproof. Cover it with Saran Wrap or Hfftq-b-Tztc before showering. You may shower as soon as you feel safe entering a shower. If you notice bleeding from your incision 2 or 3 days after surgery, please notify your surgeon. 10. Due to narcotics, decreased activity and altered diet, most patients experience constipation after surgery. Use pudf-ize-fqrpmfy stool softeners while you are on narcotics. 11. You may drive a car when you are comfortable bearing weight, have good muscular control of your leg and are off narcotics. This usually occurs 2-4 weeks after surgery, depending on which leg was operated on. 12. If there are questions not addressed here, please refer the [facility] book given for more information. If you still have questions, please contact your surgeon s office. 13. If you have a life-threatening emergency, please call 911 and go to the emergency room immediately. For non-life threatening emergencies, please call your physicians office for advice before going to the emergency room. - Follow Up Care Current Providers and Referrals: Stephany Tuttle MD [Primary Care Provider] - Mayur Tam MD [Medical Doctor] -
[2018-07-26] MEDS ORDERED: ceFAZolin 1 GM/5 ML SYR ONE (06:32)
--- NOTE | 2018-07-26 07:08 | PDANEPAE ---
ANE Past Medical History - Cardiovascular History Hx Hypertension: No Hx Arrhythmias: No Hx Chest Pain: No Hx Coronary Artery / Peripheral Vascular Disease: No Hx CHF / Valvular Disease: No Hx Palpitations: No - Pulmonary History Hx COPD: No Hx Asthma/Reactive Airway Disease: No Hx Recent Upper Respiratory Infection: No Hx Oxygen in Use at Home: No Hx Sleep Apnea: No Sleep Apnea Screening Result - Last Documented: Negative - Neurologic History Hx Cerebrovascular Accident: No Hx Seizures: No Hx Dementia: No Neurologic History Comment: hx of five previous back surgeries. 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 spinal decompressions and fusions x5. hysterectomy. big toe joint replacement. varicose vein stripping. dental procedures ANE Review of Systems Review of Systems: - Exercise capacity Exercise capacity: >=4 METS, limited by disability METS (RN): 4 METS ANE Patient History - Allergies Allergies/Adverse Reactions: CATS Allergy (Uncoded 07/12/18 11:51) Itching STRAWBERRIES Allergy (Uncoded 07/12/18 11:51) Itching - Home Medications Home Medications: Ascorbic Acid [Vitamin C 500 mg (*)] 500 mg PO Q2D 12/07/17 [Last Taken 1 Week Ago ~07/19/18] Cholecalciferol Vit D3 [Vitamin D3 (*)] 1,000 units PO Q2D 12/07/17 [Last Taken 1 Week Ago ~07/19/18] Docusate Sodium [Colace 100 MG (*)] 100 mg PO DAILY PRN 12/07/17 [Last Taken 2 Days Ago ~07/24/18] Herbals/Supplements -Info Only 1 ea PO DAILY 12/07/17 [Last Taken 1 Week Ago ~] Melatonin [Melatonin 3 MG (*)] 3 mg PO HS 12/07/17 [Last Taken 3 Days Ago ~07/23] Multivitamins [Multivitamin (*)] 1 each PO Q2D 12/07/17 [Last Taken 1 Week Ago ~ 07/19/18] Vitamin B Complex [Vitamin B Complex (OTC)] 1 each PO Q2D 12/07/17 [Last Taken 1 Week Ago ~07/19/18] Gabapentin [Neurontin 100 MG (*)] 200 mg PO TID 06/22/18 [Last Taken 07/26/18 04 :00] Hydrocodone/APAP 5/325 [Worley 5/325 (*)] 07/26/18 [Last Taken 2 Days Ago ~07/24] Tylenol Extra Strength 07/26/18 [Last Taken 07/26/18 04:00] - NPO status NPO Since - Liquids (Date): 07/26/18 NPO Since - Liquids (Time): 04:00 NPO Since - Solids (Date): 07/25/18 NPO Since - Solids (Time): 23:45 - Anes Hx Anes Hx: no prior problems - Smoking Hx Smoking Status: Never smoked Marijuana use: No - Alcohol Use Alcohol Use: Rarely - Family Anes Hx Family Anes Hx: neg - N/A Family Hx Anesthesia Complications: none ANE Labs/Vital Signs - Vital Signs Blood Pressure: 149/84 Heart Rate: 75 Respiratory Rate: 16 O2 Sat (%): 98 Height: 149.86 cm Weight: 48.534 kg ANE Physical Exam - Airway Neck exam: decreased ROM, spinal fusion Mallampati Score: Class 2 Mouth exam: normal dental/mouth exam - Pulmonary Pulmonary: no respiratory distress, no rales or rhonchi, clear to auscultation - Cardiovascular Cardiovascular: regular rate and rhythym, no murmur, rub, or gallop - ASA Status ASA Status: II ANE Anesthesia Plan Anesthesia Plan: general endotracheal anesthesia Total IV Anesthesia: No
[2018-07-26] MEDS ORDERED: fentaNYL 250 MCG/5 ML INJ ONE (07:09)
[2018-07-26] MEDS ORDERED: PROPOFOL/EMULSION 500 MG/50 ML BOTTLE IV ONE (07:10)
[2018-07-26] MEDS ORDERED: ROCURONIUM 50 MG/5 ML VIAL ONE (07:10)
[2018-07-26] MEDS ORDERED: ONDANSETRON 4 MG/2 ML VIAL ONE (07:10)
[2018-07-26] MEDS ORDERED: DEXAMETHASONE 4 MG/ML VIAL ONE (07:11)
[2018-07-26] MEDS ORDERED: PHENYLEPHRINE HCL 100 MCG/ML SYR ONE (07:11)
[2018-07-26] MEDS ORDERED: LIDOCAINE 2% 5 ML SDV ONE (07:11)
[2018-07-26] MEDS ORDERED: ePHEDrine SULFATE 25 MG/5 ML SYR ONE (07:44)
[2018-07-26] MEDS ORDERED: HYDROCODONE/APAP 5/325 TAB PO PRN (07:57)
[2018-07-26] MEDS ORDERED: PHENYLEPHRINE HCL 100 MCG/ML SYR IVP PRN (07:57)
[2018-07-26] MEDS ORDERED: ONDANSETRON 4 MG/2 ML VIAL IVP PRN ×2 (07:57→08:40)
[2018-07-26] MEDS ORDERED: oxyCODONE IR 5 MG TAB PO PRN (07:57)
[2018-07-26] MEDS ORDERED: MEPERIDINE 25 MG/0.5 ML AMP IVP PRN (07:57)
[2018-07-26] MEDS ORDERED: LR 500 ML IV PRN (07:57)
[2018-07-26] MEDS ORDERED: PROMETHAZINE HCL 25 MG/ML INJ IVP PRN ×2 (07:57→08:40)
[2018-07-26] MEDS ORDERED: ACETAMINOPHEN 500 MG TAB PO PRN (07:57)
[2018-07-26] MEDS ORDERED: NALOXONE HCL 0.4 MG/ML INJ IVP PRN (07:57)
[2018-07-26] MEDS ORDERED: GLYCOPYRROLATE 0.2 MG/1 ML VIAL ONE ×3 (08:34)
[2018-07-26] MEDS ORDERED: NEOSTIGMINE METHYLSULFATE 10 MG/10 ML MDV ONE (08:34)
[2018-07-26] MEDS ORDERED: BISACODYL 10 MG SUPP PR PRN (08:40)
[2018-07-26] MEDS ORDERED: DIPHENOXYLATE/ATROPINE LOMOTIL 1 TAB PO PRN (08:40)
[2018-07-26] MEDS ORDERED: POLYETHYLENE GLYCOL 3350 17 GM PKT PO PRN (08:40)
[2018-07-26] MEDS ORDERED: ONDANSETRON DISINTEGRATING 4 MG TAB PO PRN (08:40)
[2018-07-26] MEDS ORDERED: MAGNESIUM HYDROXIDE 30 ML UDCUP PO PRN (08:40)
[2018-07-26] MEDS ORDERED: diphenhydrAMINE 25 MG CAP PO PRN (08:40)
[2018-07-26] MEDS ORDERED: PROMETHAZINE HCL 25 MG SUPPR PR PRN (08:40)
[2018-07-26] MEDS ORDERED: METOCLOPRAMIDE 10 MG/2 ML VIAL IVP PRN (08:40)
[2018-07-26] MEDS ORDERED: LACTULOSE 20 GM/30 ML UDCUP PO PRN (08:40)
[2018-07-26] MEDS ORDERED: TEMAZEPAM 15 MG CAP PO PRN (08:40)
--- NOTE | 2018-07-26 08:40 | POSTOPPROG ---
Post Op Note Date of Operation: 07/26/18 Surgeon: Mayur Tam Drug Safety Physician: Mery Tidwell Anesthesiologist: Neha Anesthesia: GET(General Endotracheal) Pre-op Diagnosis: Right hip OA Post-op Diagnosis: Right hip OA Indication: Right hip OA Procedure: Right anterior KEYSHA, JORGE assist Findings: Right hip OA Inf/Abcess present in the surg proc area at time of surgery?: No Depth: Deep Incisional (Fascial) EBL: 100-500 Drains: Juan Carlos Newman
[2018-07-26] MEDS ORDERED: fentaNYL 100 MCG/2 ML INJ ONE ×3 (08:49→11:13)
[2018-07-26] MEDS ORDERED: LR 1,000 ML IV SCH (09:00)
[2018-07-26] MEDS ORDERED: HYDROCODONE/APAP 5/325 TAB ONE (09:10)
[2018-07-26] MEDS: fentaNYL 100 MCG/2 ML INJ IVP PRN ×3 (09:12→11:14)
[2018-07-26] MEDS ORDERED: oxyCODONE IR 5 MG TAB ONE (09:18)
[2018-07-26] MEDS ORDERED: PROMETHAZINE HCL 25 MG/ML INJ ONE (09:30)
--- NOTE | 2018-07-26 09:35 | POSTANESTH ---
Post Anesthetic Evaluation Cardiovascular Status: Similar to Pre-Op Cond Respiratory Status: Normal, Stable Level of Consciousness/Mental Status: Can Participate in Eval Pain Control: Inadeq, Add Tx Required Nausea/Vomiting Control: Adequate, Prn Tx Ordered Complications Possibly Related to Anesthesia: None Noted
[2018-07-26] MEDS ORDERED: DIAZEPAM 10 MG/2 ML SYR ONE (09:49)
--- NOTE | 2018-07-26 11:13 | PDMN ---
Medical Necessity Medical necessity: [facility] IP only surgery; cpt [id number] R KEYSHA
[2018-07-26] MEDS: SENNOSIDES/DOCUSATE SODIUM TAB PO SCH ×3 (12:12→21:14)
[2018-07-26] MEDS: GABAPENTIN 100 MG CAP PO SCH ×3 (12:12→21:14)
[2018-07-26] MEDS: ACETAMINOPHEN 325 MG TAB PO SCH ×2 (14:26→21:23)
[2018-07-26] MEDS: TRANEXAMIC ACID 650 MG TAB PO SCH ×2 (14:27→21:14)
[2018-07-26] MEDS: ceFAZolin 2 GM/DEXTROSE 100 ML IV SCH ×2 (14:32→21:14)
[2018-07-26] MEDS: oxyCODONE IR 5 MG TAB PO PRN ×3 (14:58→22:24)
[2018-07-26] MEDS: FAMOTIDINE 20 MG TAB PO SCH (21:23)
[2018-07-26] MEDS: ASPIRIN 81 MG CHEWABLE TAB PO SCH (21:23)
[2018-07-27] MEDS: ACETAMINOPHEN 325 MG TAB PO SCH ×3 (02:35→14:59)
[2018-07-27] MEDS: CYCLOBENZAPRINE 10 MG TAB PO PRN ×2 (02:46→11:28)
[2018-07-27] MEDS: oxyCODONE IR 5 MG TAB PO PRN ×4 (02:46→13:36)
[2018-07-27] MEDS: TRANEXAMIC ACID 650 MG TAB PO SCH (05:18)
--- NOTE | 2018-07-27 07:18 | PDIAF ---
- Diagnosis Diagnosis: right hip djd Code Status: Full Code - Medication Management Discharge Medications: electronically signed and located in the Home Medication List. - Orders Services needed: Home Care, Physical Therapy Home Care Face to Face: I certify that this patient was under my care and that I had the required [id number] encounter meeting the encounter requirements on the discharge day. My findings support the fact that the patient is homebound as defined in Home Care Face to Face Continued: CMS Chapter 7 Medicare Benefits Manual 30.1.1 , The condition of the patient is such that there exists a normal inability to leave home and consequently, leaving home would require a considerable and taxing effort. Diet Recommendation: no restrictions on diet Diet Texture: Regular Texture Diet Additional Instructions: TOTAL JOINT ARTHROPLASTY DISCHARGE INSTRUCTIONS 1. Your surgeon follows the [facility] protocol for reducing your risk of DVT (blood clots) following surgery. Medication will be ordered to prevent blood clots. A sudden increase in calf pain and/or swelling could indicate a blood clot in your leg. If this occurs, please call your surgeon or his/her technical assistant. An ultrasound of the leg may be necessary to diagnose a blood clot. If you have conditions that make you a higher risk for blood clots, your surgeon may use more aggressive ways to prevent them. Notify your surgeon if you think you are a high risk for blood clots. 2. Wear your white surgical stockings (ANGELA hose) for 2 weeks. This decreases your swelling and may help prevent blood clots. It is ok to remove ANGELA hose at night time to give your legs a break. 3. Swelling and bruising in the surgical leg is common. If you feel that it is excessive, please notify your surgeon. 4. Elevate your surgical leg with the ankle above the hip several times every day. Please keep the leg straight when you elevate by putting pillows under your foot. Do not put pillows under your knee. This will make being able to fully straighten more difficult. This is uncomfortable, but try to do it as much as possible. 5. For total knee replacements use compressive wrap on your knee for 3-5 days after surgery, then you can discontinue it. 6. Use a walker or crutches for 1-2 weeks. Progress your weight-bearing as tolerated. You may start to use a cane when you feel stable and safe. 7. You will receive physical therapy instructions in the hospital. Continue those exercises at home. There are additional exercises in the total joint booklet you were given before surgery. Outpatient physical therapy will begin 7- 10 days after surgery. Please schedule this in advance. 8. Use ice on your knee at least 3-5 times every day for 30 minutes. This helps reduce pain and swelling. Also use it at night before falling asleep. 9. Leave your surgical dressing in place for 2 weeks. Your dressing is water resistant, but not waterproof. Cover it with Saran Wrap or Jhbid-m-Kfly before showering. You may shower as soon as you feel safe entering a shower. If you notice bleeding from your incision 2 or 3 days after surgery, please notify your surgeon. 10. Due to narcotics, decreased activity and altered diet, most patients experience constipation after surgery. Use hboo-sqd-yfenpqi stool softeners while you are on narcotics. 11. You may drive a car when you are comfortable bearing weight, have good muscular control of your leg and are off narcotics. This usually occurs 2-4 weeks after surgery, depending on which leg was operated on. 12. If there are questions not addressed here, please refer the [facility] book given for more information. If you still have questions, please contact your surgeon s office. 13. If you have a life-threatening emergency, please call 911 and go to the emergency room immediately. For non-life threatening emergencies, please call your physicians office for advice before going to the emergency room. - Follow Up Care Current Providers and Referrals: Stephany Tuttle MD [Primary Care Provider] - Mayur Tam MD [Medical Doctor] -
--- NOTE | 2018-07-27 07:52 | SOAPPROG ---
SOAP Progress Note Assessment/Plan: Assessment: s/p right anterior KEYSHA, Valentin assist Plan: Discharge home WBAT ROM as tolerated Anterior total hip precautions Home PT with estate planner DVT precautions reviewed - aspirin 81 mg BID x 6 weeks F/U at two weeks Seek attention for increasing pain, swelling or other focal complaint Subjective: Patient complains of mild pain. States there is no chest pain or shortness of breath. Patient tolerating oral pain medication and oral diet. Objective: Vital Signs Temp Pulse Resp BP Pulse Ox 36.6 C 69 16 144/71 H 97 07/27/18 07:42 07/27/18 07:42 07/27/18 07:42 07/27/18 07:42 07/27/18 07:42 Laboratory Results 07/27/18 04:24 07/26/18 07/27/18 07/28/18 05:59 05:59 05:59 Intake Total 5550 Output Total 1910 40 Balance 3640 -40 RLE: Dressing is clean, dry, intact. Drain has been removed. Intact PF, DF, EHL. Toes are warm and pink. Negative Homans bilaterally. X-rays reveal stable anatomic alignment, no fracture or lucency. ICD10 Worksheet Patient Problems: Problems Problem Status Onset Unilateral primary osteoarthritis, right hip Acute Lumbar radicular pain Acute Lumbar stenosis Acute
--- NOTE | 2018-07-27 07:57 | PDDCSUM ---
Discharge Summary Discharge Summary: ADMIT DIAGNOSIS: Right hip degenerative joint disease DISCHARGE DIAGNOSIS: Right hip degenerative joint disease NAME OF PROCEDURE: Right anterior total hip arthroplasty, MAKOplasty robotic assist HPI: The patient is a 73 year old female who has end-stage arthritis of her right hip. Clinical and radiographic features are consistent with this. Patient has failed attempts at conservative management, therefore, recommended operative right total hip replacement, anterior approach. HOSPITAL COURSE: Patient was admitted to the hospital floor after uncomplicated anterior right total hip arthroplasty, MAKOplasty robotic assist. Patient tolerated the procedure well and had no additional complications. Patient was started on aspirin 81 mg BID, SCDs, ANGELA hose for VTE prophylaxis. Patient also participated with PT and OT. On the morning of POD 1, patient is doing better than expected. The most recent H&H is 11.5/34.1. At the time of discharge, patient is tolerating an oral diet, pain is well controlled on oral medications , and is voiding without difficulty. Dressing is clean, dry and intact. There is no swelling or calf tenderness. Patient has intact plantarflexion, dorsiflexion, EHL function. X-rays demonstrate anatomic positioning with no fracture or lucency. DISCHARGE ACTIVITY: Patient is WBAT and can perform ROM as tolerated. She will follow anterior total hip precautions. Patient was instructed to keep dressing clean, dry and intact. Patient is to seek attention for increasing redness, swelling, drainage or discharge. DISCHARGE MEDICATIONS: oxycodone 5 mg 1-2 every 3 hours prn pain, cyclobenzaprine 10 mg PO every 8 hours prn spasm, Zofran 4 mg orally disintegrating tablet every 8 hours prn nausea, aspirin 81 mg PO twice daily, Tylenol as needed for pain. FOLLOW-UP: Follow up in 2 weeks. Again, patient is to seek attention for increasing redness, swelling, drainage or discharge.
[2018-07-27] MEDS: SENNOSIDES/DOCUSATE SODIUM TAB PO SCH (08:00)
[2018-07-27] MEDS: ASPIRIN 81 MG CHEWABLE TAB PO SCH (08:01)
[2018-07-27] MEDS: FAMOTIDINE 20 MG TAB PO SCH (08:01)
[2018-07-27] MEDS: GABAPENTIN 100 MG CAP PO SCH ×2 (08:02→16:12)
[2018-07-27 11:14] VITALS: BP 132/73
--- NOTE | 2018-07-27 14:07 | ASMTCMCOM ---
CM Note CM Note Notes: This CM met with Pt and several times and finally Pt decided on HC. [facility] Ani notified and met with Pt prior to her discharge. referral sent to [facility]. Pt informed [facility] will call Pt in the morning to set up times. Pt wants to set up Outpatient therapy on her own in 2 weeks. CM available for needs. PLAN: discharge home with [facility] and Pt wants to set up outpatient on her own. Date Signed: 07/27/2018 02:07 PM Electronically Signed By:Shelia Pappas.RN,SENIOR GRANT WRITER
--- NOTE | 2018-07-27 14:08 | ASMTLACE ---
LACE Length of stay for Answers: 2 days current admission Acuity / Level of Answers: Yes Care: Did the patient have an inpatient admission? Comorbidities - select Answers: Opioid dependence all that apply / Chronic pain # of Emergency department Answers: 0 visits in the last 6 months Score: 9 Date Signed: 07/27/2018 02:07 PM Electronically Signed By:Shelia Pappas.RN,CASHIER ASSOCIATE
--- NOTE | 2018-07-28 07:22 | GOP ---
[f rep st] OPERATIVE REPORT DATE OF OPERATION: 07/26/2018 SURGEON: Mayur Tam MD LPN PER DIEM: Milli Finn, who was a medical necessity for the entirety of the case. PREOPERATIVE DIAGNOSIS: Right hip degenerative joint disease. POSTOPERATIVE DIAGNOSIS: Right hip degenerative joint disease. PROCEDURE PERFORMED: Right total hip arthroplasty. FINDINGS: SPECIMENS: To Pathology, the femoral head. ESTIMATED BLOOD LOSS: 200 cc. INDICATIONS: Danyelle is a 73-year-old woman with end-stage arthritis to her right hip. Clinical and radiographic features are consistent with this. She has failed all attempts at conservative managem ent. I have, therefore, recommended operative intervention. I have outlined the surgical procedure, risks, benefits, alternatives, she wishes to proceed. Written consent was signed and placed on the patient's chart. DESCRIPTION OF PROCEDURE: The patient was identified in the preanesthesia area. The right hip was c learly demarcated as the operative site with indelible marker. She was given 2 g of Ancef intravenou sly in route to the operative suite. In the OR spinal, general anesthetic was placed given the exten sive spinal history. She was positioned in the supine position and the pelvis and both lower extremi ties were sterilely prepped and draped in usual fashion. Appropriate time-out procedure was carried out. Attention was first turned to the left hemipelvis. A 2 cm incision was made over the iliac cre st. Three pins were then placed in the pelvic reference array affixed. Attention was then turned to the right hip. An anterior approach was made. Thick subcutaneous flaps were elevated. The tensor fascia was opened in the origin of its fibers. The tensor was retracted laterally. The underlying v ascular structures were cauterized and transected. Retractors were placed into an extracapsular posi tion. A T capsulotomy was then made. An acetabular checkpoint was placed. A bony wedge was withdra wn from the femoral neck as was the femoral head. The soft tissue contents around the acetabulum wer e sharply excised. The bony landmarks were entered into the computer. Using the MAKOplasty software , resection was made with a 46 mm reamer. A 46 mm acetabular shell was then impacted in the opening angle of 45 degrees and anteversion of 20 degrees. This was confirmed to be fully seated. A 0-degre e X3 liner was then placed and again confirmed to be fully seated. The proximal femur was delivered through the use of extension of the table, external rotation of the lower leg and adduction. The pro ximal canal was opened. Serial broaching was carried out to a size 1 stem. This position and locati on were confirmed with fluoroscopic evaluation. Trial reduction was carried out and ultimately a 32 mm +0 mm head was selected. This allowed roman catholic of leg lengths, external rotation to 90 degrees , and 5 degrees of hyperextension without any subluxation. The trial stem was withdrawn. The size 1 stem was impacted and confirmed to be fully seated. The trunnion was cleansed and a 32 mm +0 mm nec k length head was then placed. The hip was irrigated and reduced. Copious irrigation followed the s tability profile and leg lengths were as above and equal respectively. The hip was copiously irrigat ed with pulsatile lavage solution. The tissue was injected with a joint cocktail of ropivacaine, Tor adol and epinephrine. A 10-Urdu drain was then placed. The fascia was closed using 0 Vicryl, subc utaneous tissue using 2-0 Monocryl and the skin was stapled. Sterile dressings were applied. The pa tient was awakened, extubated and taken to recovery room in good, stable condition. TOTAL TOURNIQUET TIME: None. COMPLICATIONS: None. IMPLANTS: [place] Trident II acetabular shell, 46 mm 0-degree X3 liner, 32 mm, Accolade II 127-degre e neck angle hip stem size 1, Biolox ceramic head 32 mm +0 mm neck length. DISPOSITION: To the recovery room and then the floor. She is weightbearing as tolerated and anterio r hip precautions. /[id number]/MODL
--- NOTE | 2018-07-28 09:46 | ASDISCHSUM ---
Discharge Information Plan Status: Medically Cleared to Leave: Discharge Date:07/27/2018 04:34 PM CM D/C Disposition: ADT D/C Disposition:Home Health Service Projected Discharge Date:07/27/2018 11:00 AM Transportation at D/C: Discharge Delay Reason: Follow-Up Date:07/27/2018 11:00 AM Discharge Slot: Final Diagnosis: Placement Information Referral Type:*Home Health Care Services Referral ID:[id number] Provider Name:[facility] ([facility]) Address 1:[address] [address] Address 2: City:[place] Selection Factors: State:[place] Patient Contact Information Contact Name:DENAESURESHECSARIO Relationship: Address:[address] City:[place] Alternate Phone: State/Zip Code:[place] [address] Email: Financial Information Financial Class:Medicare Primary Plan Desc:MEDICARE INPATIENT Primary Plan Number:[id number] Secondary Plan Desc: Secondary Plan Number: Assessment Information LACE LACE Length of stay for Answers: 2 days current admission Acuity / Level of Answers: Yes Care: Did the patient have an inpatient admission? Comorbidities - select Answers: Opioid dependence all that apply / Chronic pain # of Emergency department Answers: 0 visits in the last 6 months Score: 9 Date Signed: 07/27/2018 02:07 PM Electronically Signed By:Shelia Pappas.RN,[employer]R [employer] [facility] CM Progress Note CM Note CM Note Notes: This CM met with Pt and several times and finally Pt decided on HC. [facility] Ani notified and met with Pt prior to her discharge. referral sent to [facility]. Pt informed [facility] will call Pt in the morning to set up times. Pt wants to set up Outpatient therapy on her own in 2 weeks. CM available for needs. PLAN: discharge home with [facility] and Pt wants to set up outpatient on her own. Date Signed: 07/27/2018 02:07 PM Electronically Signed By:Shelia Pappas.LUKE CRUZ Intervention Information
== END 2018-07-27 16:34 | disposition home health service (06) | DRG 470 ==
LOC: F3N 06:07
PROVIDERS: ADMIT Orthopaedic Surgery; ATTEND Orthopaedic Surgery
PROC: 8E0Y0CZ Robotic Assisted Procedure of Lower Extremity, Open Approach (ICD-10-PCS; principal; 2018-07-26 07:15)
PROC: 0SR904A Replacement of Right Hip Joint with Ceramic on Polyethylene Synthetic Substitute, Uncemented, Open Approach (ICD-10-PCS; principal; 2018-07-26 07:15)
DX: M16.11 Unilateral primary osteoarthritis, right hip (principal); K59.03 Drug induced constipation; T40.605A Adverse effect of unspecified narcotics, initial encounter
CPT/HCPCS: 97116-GP; 97161-GP; 97165-GO; 97530-GP; J0171; J0690; J1100; J1885; J2270; J2370; J2405; J2550; J2704; J2795; J3010; J3360